=== PATIENT | female | born 1985 | race Caucasian/White ===

== ENCOUNTER 2016-08-18 19:33 | Emergency (ER) | payer OTHER, BC ==
--- NOTE | 2016-08-18 20:04 | ER Document Report ---
ED Medical Screen (RME) - General Stated Complaint: LEFT THUMB LACERATION Notes: cut her left thumb at 630pm. opening a package with a knife and sliced her thumb evidence of pulsatile bleeding, senstation intact at distal tip of her finger, capillary refill less than 2 seconds last tetanus was late 2011 I have greeted and performed a rapid initial assessment of this patient. A comprehensive ED assessment and evaluation of the patient, analysis of test results and completion of the medical decision making process will be conducted by additional ED providers. TRAVEL OUTSIDE OF THE [place] IN LAST 30 DAYS: No - Related Data Allergies/Adverse Reactions: aripiprazole [From Abilify] Allergy (Verified 06/29/16 16:43) azithromycin [From Zithromax] Allergy (Verified 03/17/15 13:15) gabapentin Allergy (Verified 06/29/16 16:43) strawberry [[place]] Allergy (Verified 03/17/15 13:15) Past Medical History Psychiatric Medical History: Reports: Hx Anxiety, Hx Bipolar Disorder, Hx Depression Past Surgical History: Reports: Hx Orthopedic Surgery - L shoulder - Immunizations Hx Diphtheria, Pertussis, Tetanus Vaccination: Yes - approx 1 year ago
[2016-08-18] MEDS ORDERED: OXYCODONE-ACETAMINOPHEN 5-325 MG TABLET PO ONE (20:05)
[2016-08-19] MEDS ORDERED: LIDOCAINE 1% INJ-PF (10 MG/ML) 30 ML SDV INJ ONE (01:11)
--- NOTE | 2016-08-19 01:21 | ER Document Report ---
ED General - General Chief Complaint: Laceration Stated Complaint: LEFT THUMB LACERATION Notes: Patient is a 31 of female presents for complaint of a laceration to the left thumb. She actually cut her thumb while using a razor blade to open a box. She denies any other injuries. She is up-to-date on her tetanus status. She denies any other complaints or injuries. TRAVEL OUTSIDE OF THE [place] IN LAST 30 DAYS: No - Related Data Allergies/Adverse Reactions: aripiprazole [From Abilify] Allergy (Verified 06/29/16 16:43) azithromycin [From Zithromax] Allergy (Verified 03/17/15 13:15) gabapentin Allergy (Verified 06/29/16 16:43) strawberry [[place]] Allergy (Verified 03/17/15 13:15) Past Medical History - Social History Smoking Status: Current Every Day Smoker Chew tobacco use (# tins/day): No Frequency of alcohol use: None Drug Abuse: None Family History: CAD, Hypertension Patient has suicidal ideation: No Patient has homicidal ideation: No Renal/ Medical History: Denies: Hx Peritoneal Dialysis Psychiatric Medical History: Reports: Hx Anxiety, Hx Bipolar Disorder, Hx Depression Past Surgical History: Reports: Hx Orthopedic Surgery - L shoulder - Immunizations Hx Diphtheria, Pertussis, Tetanus Vaccination: Yes - approx 1 year ago Review of Systems - Review of Systems Notes: My Normal Review Basic REVIEW OF SYSTEMS: CONSTITUTIONAL : Denies fever, chills, or sweats. Denies recent illness. MUSCULOSKELETAL: Pain and laceration to left thumb. SKIN: Denies rash or skin lesions. NEUROLOGICAL: Denies sensory or motor loss. ALL OTHER SYSTEMS REVIEWED AND NEGATIVE. Physical Exam - Notes Notes: General Appearance: Well nourished, alert, cooperative, no acute distress, no obvious discomfort. Vitals: reviewed, See vital signs table. Head: no swelling or tenderness to the head Eyes: PERRL, EOMI, Conjuctiva clear Extremities: strength 5/5 in all extremities, good pulses in all extremities, patient has a laceration to the pad of the left thumb. Mild gaping of the laceration. No exposed tendon.. Venous oozing from the thumb, no edema. Patient is able to flex and extend the thumb but has some pain in doing so. Skin: warm, dry, appropriate color, no rash Neuro: speech clear, oriented x 3, normal affect, responds appropriately to questions. Course - Transfer of Care Notes: 08/19/16 06:55 Laceration was thoroughly irrigated and cleaned. Laceration was sutured closed. The very proximal part of laceration was a small superficial skin flap which would be too thin for sutures and therefore this was Dermabond. A total of 4 sutures was placed through the remainder of the laceration. Patient encouraged return to ER in 7 days for suture removal. She's encouraged return to ER immediately if she has any redness swelling or signs of infection. Patient agrees with plan and will be discharged home. Dictation of this chart was performed using voice recognition software; therefore, there may be some unintended grammatical errors. Procedures - Laceration/Wound Repair left thumb Wound length (cm): 2 Wound's Depth, Shape: Irregular Laceration pre-procedure: Shur-Clens applied Anesthetic type: 1% Lidocaine Volume Anesthetic (mLs): 1 Wound explored: Clean Irrigated w/ Saline (mLs): 20 Wound Repaired With: Sutures, Dermabond Suture Size/Type: 5:0, Ethilon Number of Sutures: 4 Post-procedure NV exam normal: Yes Complications: No Discharge - Discharge Clinical Impression: Thumb laceration Qualifiers: Encounter type: initial encounter Laterality: left Qualified Code(s): S61.012A - Laceration without foreign body of left thumb without damage to nail, initial encounter Condition: Good Disposition: HOME, SELF-CARE Additional Instructions: LACERATION CARE: Your laceration has been sutured to keep the skin edges aligned during healing. The time of suture removal depends on the nature and location of your cut. Please follow the care instructions the doctor has outlined for you and return for further care, according to the schedule you've been given. Keep the wound and dressing clean. Unless you were told otherwise, you may shower daily, blotting the wound dry with a clean, unused towel. At other times, If the dressing gets wet or blood soaked, remove it and blot the wound dry, then reapply a new dressing. Unless you were instructed otherwise, dressings should be changed at least daily. If any signs of infection occur (swelling, redness, drainage, increasing tenderness, red streaks, tender lumps in the armpit or groin above the laceration, or fever), see the doctor immediately. SOAP CLEANSING: Gently wash the wound daily using a mild soap (like Ivory, Phisoderm, Neutrogena). Use warm water, rubbing gently until all debris, ooze, and crusting have been washed from the wound. Allow to dry briefly (about 10 minutes) after cleaning. Repeat this cleansing at least three times a day for the first two days and then once or twice a day. PROPHYLACTIC ANTIBIOTIC: The antibiotics which have been prescribed are designed to decrease the risk of infection. Only certain types of wounds benefit from this -- the typical cut, scrape, or burn DOES NOT require antibiotics. Of course, infection can still occur despite the use of prophylactic antibiotics. Your wound will heal with less chance of an infectious complication if you take the medication as directed. The most important dose is the FIRST dose, so don't delay filling the prescription! FOLLOW-UP CARE: Your sutures should be removed in __7___ days. To facilitate a timely removal of your sutures, you may return to the Emergency Department at [facility]. You do not need to call for an appointment, but the best time to come in for suture removal is early in the morning. If you have been referred to another physician for follow-up care, call that physicians office for an appointment as you were instructed. If you experience a significant change in your laceration, or if you are concerned there may be an infection (swelling, redness, drainage, increasing tenderness, red streaks, tender lumps in the armpit or groin above the laceration, or fever) , return to the Emergency Department immediately re-evaluation. Prescriptions: Cephalexin Monohydrate [Keflex 500 mg Capsule] 500 mg PO BID #14 capsule
[2016-08-19] MEDS ORDERED: CEPHALEXIN 500 MG CAPSULE PO ONE (01:54)
== END 2016-08-19 02:07 | disposition home or self-care (01) ==
LOC: ER 19:33
PROC: 0HQGXZZ Repair Left Hand Skin, External Approach (ICD-10-PCS; principal; 2016-08-18)
DX: S61.012A Laceration without foreign body of left thumb without damage to nail, initial encounter (principal); F17.210 Nicotine dependence, cigarettes, uncomplicated; W26.0XXA Contact with knife, initial encounter
CPT/HCPCS: 99282

== ENCOUNTER 2016-10-05 12:15 | Emergency (ER) | payer BC ==
[2016-10-05] MEDS ORDERED: ONDANSETRON HCL 8 MG TABLET PO ONE (12:21)
--- NOTE | 2016-10-05 12:22 | ER Document Report ---
ED Medical Screen (RME) - General Stated Complaint: VOMITING Mode of Arrival: Ambulatory Information source: Patient Notes: Patient presents complaining of nausea, vomiting, and diarrhea for the past 2 weeks. Patient complains of dizziness. No fever. Patient reports chronic generalized pain. hx: Chronic back pain, migraine, Leonard's I have greeted and performed a rapid initial assessment of this patient. A comprehensive ED assessment and evaluation of the patient, analysis of test results and completion of the medical decision making process will be conducted by additional ED providers. TRAVEL OUTSIDE OF THE [place] IN LAST 30 DAYS: No - Related Data Allergies/Adverse Reactions: aripiprazole [From Abilify] Allergy (Verified 10/05/16 12:19) azithromycin [From Zithromax] Allergy (Verified 10/05/16 12:19) gabapentin Allergy (Verified 10/05/16 12:19) strawberry [[place]] Allergy (Verified 10/05/16 12:19) Past Medical History Renal/ Medical History: Denies: Hx Peritoneal Dialysis Psychiatric Medical History: Reports: Hx Anxiety, Hx Bipolar Disorder, Hx Depression Past Surgical History: Reports: Hx Orthopedic Surgery - L shoulder - Immunizations Hx Diphtheria, Pertussis, Tetanus Vaccination: Yes - approx 1 year ago Physical Exam - General General appearance: Appears well, Alert In distress: None
[2016-10-05 12:41] LABS: ABSOLUTE BASOPHILS # (AUTO) 0.1 10^3/uL (0.0-0.2); ABSOLUTE LYMPHOCYTES (AUTO) 1.6 10^3/uL (0.5-4.7); ABSOLUTE MONOCYTES (AUTO) 0.4 10^3/uL (0.1-1.4); ABSOLUTE NEUT (AUTO) 6.5 10^3/uL (1.7-8.2); BASOPHILS % (AUTO) 0.7 % (0-2); EOSINOPHILS % (AUTO) 0.5 % (0-6); HEMATOCRIT 40.9 % (36.0-47.0); HEMOGLOBIN 13.4 g/dL (12.0-15.5); HGB HCT DIFFERENCE -0.7; LYMPHOCYTES % (AUTO) 18.6 % (13-45); MEAN CORPUSCULAR HGB CONC 32.8 g/dL (32.0-36.0); MEAN CORPUSCULAR VOLUME 82 fl (80-97); MONOCYTES % (AUTO) 5.1 % (3-13); RED BLOOD COUNT 4.96 10^6/uL (3.72-5.28); RED CELL DISTRIBUTION WIDTH 13.9 % (11.5-14.0); SEGMENTED NEUTROPHILS % (AUTO) 75.1 % (42-78); WHITE BLOOD COUNT 8.6 10^3/uL (4.0-10.5)
[2016-10-05 12:59] LABS: ALANINE AMINOTRANSFERASE 17 U/L (9-52); ALKALINE PHOSPHATASE 74 U/L (38-126); ANION GAP 17 (5-19); ASPARTATE AMINO TRANSFERASE 18 U/L (14-36); BILIRUBIN,DIRECT 0.2 mg/dL (0.0-0.4); BILIRUBIN,TOTAL 1.4 mg/dL (0.2-1.3); BLOOD UREA NITROGEN 5 mg/dL (7-20); CALCIUM 10.3 mg/dL (8.4-10.2); CARBON DIOXIDE 24 mmol/L (22-30); CHLORIDE 103 mmol/L (98-107); CREATININE RESULT 0.71 mg/dL (0.52-1.25); GLUCOSE 95 mg/dL (75-110); LIPASE 66.7 U/L (23-300); POTASSIUM 3.6 mmol/L (3.6-5.0); TOTAL PROTEIN 7.6 g/dL (6.3-8.2)
[2016-10-05] MEDS ORDERED: PROCHLORPERAZINE EDISYLATE INJ 10 MG/2 ML VIAL IV ONE (15:34)
[2016-10-05] MEDS ORDERED: KETOROLAC TROMETHAMINE INJ/PF 30 MG/1 ML SDV IV ONE (15:34)
[2016-10-05] MEDS ORDERED: DIPHENHYDRAMINE HCL 50 MG/ML VIAL IV ONE (15:34)
[2016-10-05] MEDS ORDERED: NORMAL SALINE 1000 ML 1,000 ML IV ONE (15:35)
--- NOTE | 2016-10-05 15:36 | ER Document Report ---
ED GI/ - General Chief Complaint: Abdominal Pain Stated Complaint: VOMITING Time seen by provider: 15:25 Mode of Arrival: Ambulatory Notes: 31-year-old female presents to ED for complaints of nausea vomiting diarrhea for 2 weeks along with dizziness and migraine headaches. She states she has a history of chronic back pain as well as migraines and Leonard's. She states [facility] been able [facility]. She went to an urgent care about a week ago and they told her that she had a viral infection. She states she has a migraine at this time. TRAVEL OUTSIDE OF THE [place] IN LAST 30 DAYS: No - HPI Patient complains to provider of: Diarrhea, Vomiting, Other - Headache Onset: Other - 2 weeks Timing/Duration: Intermittent Quality of pain: Achy, Cramping Severity at maximum: Moderate Severity in ED: Moderate Pain Level: 3 Vaginal bleeding (Compared to normal period): None Associated symptoms: Diarrhea, Dizzy, Nausea, Vomiting, Other - Chronic generalized pain Exacerbated by: Movement, Walking, Food, Other Relieved by: Denies Similar symptoms previously: Yes Recently seen / treated by doctor: Yes - Related Data Allergies/Adverse Reactions: aripiprazole [From Abilify] Allergy (Verified 10/05/16 12:19) azithromycin [From Zithromax] Allergy (Verified 10/05/16 12:19) gabapentin Allergy (Verified 10/05/16 12:19) strawberry [Lane] Allergy (Verified 10/05/16 12:19) Past Medical History - General Information source: Patient - Social History Smoking Status: Never Smoker Cigarette use (# per day): No Chew tobacco use (# tins/day): No Smoking Education Provided: No Frequency of alcohol use: Occasional Drug Abuse: None Lives with: Family Family History: CAD, Hypertension Patient has suicidal ideation: No Patient has homicidal ideation: No - Past Medical History Cardiac Medical History: Reports: None Pulmonary Medical History: Reports: None EENT Medical History: Reports: None Neurological Medical History: Reports: Hx Migraine Endocrine Medical History: 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/ Medical History: Reports: None Malignancy Medical History: Reports: None GI Medical History: Reports: None Musculoskeltal Medical History: Reports Other - Chronic back pain, chronic pain to legs arms elbow shoulder Skin Medical History: Reports None Psychiatric Medical History: Reports: Hx Anxiety, Hx Bipolar Disorder, Hx Depression Traumatic Medical History: Reports: None Past Surgical History: Reports: Hx Orthopedic Surgery - L shoulder - Immunizations Hx Diphtheria, Pertussis, Tetanus Vaccination: Yes - approx 1 year ago Review of Systems - Review of Systems Constitutional: Recent illness EENT: No symptoms reported Cardiovascular: No symptoms reported Respiratory: No symptoms reported Gastrointestinal: Diarrhea, Nausea, Vomiting Genitourinary: No symptoms reported Female Genitourinary: No symptoms reported Musculoskeletal: Other - Generalized body aches Skin: No symptoms reported Hematologic/Lymphatic: No symptoms reported Neurological/Psychological: Headaches -: Yes All other systems reviewed and negative Physical Exam - Vital signs Vitals: Temp Pulse Resp BP Pulse Ox 98.4 F 85 14 118/82 99 10/05/16 12:18 10/05/16 12:18 10/05/16 12:18 10/05/16 12:18 10/05/16 12:18 Interpretation: Normal - General General appearance: Appears well, Alert - HEENT Head: Normocephalic, Atraumatic Eyes: Normal Pupils: PERRL - Respiratory Respiratory status: No respiratory distress Chest status: Nontender Breath sounds: Normal Chest palpation: Normal - Cardiovascular Rhythm: Regular Heart sounds: Normal auscultation Murmur: No - Abdominal Inspection: Normal Distension: No distension Bowel sounds: Normal Tenderness: Nontender Organomegaly: No organomegaly - Back Back: Normal, Nontender - Extremities General upper extremity: Normal inspection, Nontender, Normal color, Normal ROM , Normal temperature General lower extremity: Normal inspection, Nontender, Normal color, Normal ROM , Normal temperature, Normal weight bearing. No: Teresa's sign - Neurological Neuro grossly intact: Yes Cognition: Normal Orientation: AAOx4 Amanda Coma Scale Eye Opening: Spontaneous Amanda Coma Scale Verbal: Oriented Wilburn Coma Scale Motor: Obeys Commands Amanda Coma Scale Total: 15 Speech: Normal Motor strength normal: LUE, RUE, LLE, RLE Sensory: Normal - Psychological Associated symptoms: Normal affect, Normal mood - Skin Skin Temperature: Warm Skin Moisture: Dry Skin Color: Normal Course - Vital Signs Vital signs: Temp Pulse Resp BP Pulse Ox 97.3 F 63 16 110/80 100 10/05/16 18:30 10/05/16 18:30 10/05/16 18:30 10/05/16 18:30 10/05/16 18:30 - Laboratory Result Diagrams: 10/05/16 12:25 10/05/16 12:25 Laboratory results interpreted by me: 10/05/16 10/05/16 12:25 17:58 BUN 5 L Calcium 10.3 H Total Bilirubin 1.4 H Urine Protein 30 H Urine Ketones TRACE H Urine Blood LARGE H Ur Leukocyte Esterase LARGE H Discharge - Discharge Clinical Impression: Nausea and vomiting in adult, Pelvic pain Abdominal pain Qualifiers: Abdominal location: unspecified location Qualified Code(s): R10.9 - Unspecified abdominal pain Diarrhea Qualifiers: Diarrhea type: unspecified type Qualified Code(s): R19.7 - Diarrhea, unspecified Condition: Stable Disposition: HOME, SELF-CARE Instructions: Family Physicians / Practices Additional Instructions: ABDOMINAL PAIN: There are many causes of abdominal pain. Pain can mean a serious problem requiring surgery (such as appendicitis). It can also be an innocent problem that goes away on its own (such as a viral infection). Often, time must pass to determine the cause of pain. The physician does not feel that hospitalization is necessary, at present. Things may change within the next 24 hours. Call the doctor or come back for re- examination if any problems occur, such as: (1) Pain that becomes more severe, steady, or becomes concentrated in one specific area. Also, pain that is more severe with movement or coughing. (2) Vomiting that persists or becomes more frequent. (3) Blood in the vomitus, urine, or bowel movements. Blood in the stool may have a tarry or black appearance. (4) Shaking chills or fever greater than 100 degrees F. (5) The abdomen becomes more distended or swollen. (6) Bowel movements cease. (7) Failure to improve as expected. VOMITING: Vomiting (or nausea without vomiting) can be caused by many other different problems. It can mean that something's wrong with the stomach, such as ulcers or inflammation or the intestinal tract, such as appendicitis. But it can also be a symptom of a problem that has nothing to do with the stomach or intestines. Vomiting is common with severe headaches, earaches, tonsillitis, and kidney infections, etc. We see it with pneumonia or heart attacks. Drugs can cause nausea and vomiting. Many abdominal problems cause vomiting; for example, gallstones, kidney stones, pancreatitis, and intestinal obstruction ( blocked bowels). In most cases, curing the vomiting depends on fixing the problem that caused it. For temporary relief, we may use an anti-nausea medicine. For home use, we can prescribe suppositories, chewable pills, pills that dissolve in the mouth, or liquid anti-nausea drugs. If the vomiting seems to be caused by a problem in the stomach, acid-suppressing drugs may be prescribed as well. It's important to avoid dehydration. Sip small amounts of clear liquids ( soft drinks, tea, broth, etc) . Try to take fluids frequently even if you are vomiting to prevent dehydration. Take increasing amounts of fluid and when liquids are being consumed successfully, advance to small amounts of bland food (toast, soups, mashed potatoes, etc.) until you are able to resume a regular diet. Avoid aspirin, tobacco, and alcohol. If the vomiting worsens, if the problem that's making you vomit worsens, or if there's evidence of bleeding in the stomach (such as black, tarry stool, or bloody or black vomit), you should return immediately. Also, return if abdominal pain worsens or becomes localized to one area or you develop high fever. Call your doctor if you aren't improved in 24 hours. DIARRHEA, NON-SPECIFIC: Diarrhea means frequent, watery stools. There are many causes. Any problem that keeps the intestinal tract from absorbing water from the stool can lead to diarrhea. A sudden new diarrhea problem is usually caused by a virus, food sensitivity, toxic bacteria, or drugs. In this case, we expect the problem to go away soon. Testing is done only if you seem seriously ill from the diarrhea. If you have chronic diarrhea, or diarrhea that keeps coming back, we need to find out why. Chronic diarrhea can be due to inflammation of the bowels such as Crohn's disease or ulcerative colitis, food sensitivity such as intolerance to lactose or wheat protein, irritable bowel syndrome, and other problems. If your diarrhea is a significant problem but it's not clear why you have it, we' ll refer you to a specialist for further testing. During an episode of diarrhea, drink small amounts (two to six ounces) of clear liquids (soft drinks, sport drinks, herb teas, broth, etc). Take fluids frequently to prevent dehydration. It's usually not a problem to take mild anti- diarrhea medication such as Kaopectate or Pepto-Bismol. As the diarrhea eases, advance to small amounts of bland food (mashed potato, toast) for 24 hours. Call the physician if blood appears in your vomit or stool, if vomiting lasts longer than 24 hours, if the abdominal pain worsens or becomes localized to one area, if you develop high fever, or if you become lightheaded and weak. VIRAL SYNDROME: The physician has diagnosed a viral infection. Viruses not only cause "colds," but can cause many different symptoms including generalized aching, fever, headache, cough, diarrhea, nausea, vomiting, and fatigue. The treatment, for the most part, is simply relief of symptoms. This means that antibiotics are usually not given. Rest, fluids, pain medications and, occasionally, medication for the specific symptoms that are most bothersome will be prescribed. Use good handwashing to avoid passing the virus to others. Shared toys should be cleaned with disinfectant. Clean the toilets, sinks, and counter surfaces in bathrooms. Launder clothing in hot water. Contact the physician if you develop any new or unusual symptoms such as severe headache, stiff neck, high fever, chest pain, productive cough, or shortness of breath. You should be rechecked if you don't see marked improvement within seven to 10 days. HEADACHE: The physician does not feel that the headache you are experiencing has a serious underlying cause. Most headaches are due to emotional stress, with resultant muscle tension (tension headache). Occasionally, headaches are secondary to changes in the blood vessels of the scalp (vascular headache and migraine headache). Sometimes, a headache is the first symptom of another developing illness, such as a viral infection. You have no evidence of stroke, bleeding, meningitis, or other serious cause of your headache. The treatment of headaches varies with the severity and cause of the pain. Not all headaches need pain shots. In fact, there is evidence that using narcotics for headaches may make them worse in the long run. The physician will determine the therapy that's in your best interest. If you develop a fever, if the headache is different from any you've previously experienced, or if the headache progressively worsens, then call your physician at once or go to the emergency room. PELVIC PAIN: There are many causes of pain in the pelvic area. The cause could be the tubes, ovaries, uterus, intestines, appendix, pelvic muscles and connective tissue, or the urinary tract. The cause of your pelvic pain is not clear. However, it seems safe to treat you outside the hospital. If the pain sounds like a temporary problem, we sometimes wait to see if it goes away. Other patients may need additional tests, such as pelvic ultrasound or cultures. Conditions may change. Call us or come back for reexamination if any problems occur, such as: (1) Pain that becomes more severe, steady, or becomes concentrated in one specific area. Also, pain that is more severe with movement or coughing. (2) Vomiting that persists or becomes more frequent. (3) Blood in the vomitus, urine, or bowel movements. Blood in the stool may have a tarry or black appearance. (4) Shaking chills or fever greater than 100 degrees. (5) The abdomen becomes more distended or swollen. (6) Bowel movements cease. (7) Heavy vaginal bleeding. \\ CEPHALOSPORINS: An antibiotic of the cephalosporin class has been prescribed. This type of antibiotic covers a wide variety of infections, including those of the skin, lungs, middle ear, and urinary tract. This antibiotic is somewhat similar to the penicillin family. In rare cases , a person who is allergic to penicillin will also be allergic to this medication. If you have had a severe allergic reaction to penicillin, and have not taken this antibiotic since that time, notify your doctor. Antibiotics which cover many germs ("broad spectrum" antibiotics) are more likely to cause diarrhea or "yeast" infections. Women prone to vaginal yeast problems may suffer an attack after taking this antibiotic. In infants, oral thrush (white spots "stuck" on the cheek) or yeast diaper rash may result. See your doctor if these problems occur. Call the doctor at once if you develop hives, itching, shortness of breath , or lightheadedness. DOXYCYCLINE: Doxycycline (Vibramycin, Doryx) is an antibiotic of the tetracycline family. This type of drug is useful for infections of the respiratory tract and genital tract, and is sometimes used for intestinal infections. Unlike most tetracyclines, doxycycline can be taken with food. It is longer acting, and (usually) less prone to side effects than regular tetracycline. Tetracycline antibiotics can stain immature teeth and SHOULD NOT BE TAKEN BY CHILDREN, NURSING MOTHERS, OR WOMEN. Tetracyclines can make you more prone to sunburn. Abdominal cramping, nausea, and diarrhea are occasional side effects. Women may experience vaginal yeast infections. Call the doctor at once if you develop hives, itching, shortness of breath , or lightheadedness. USE OF DIPHENHYDRAMINE: Diphenhydramine (Benadryl) is an antihistamine and has been recommended to help treat your headache and to prevent side effects of other medications used to treat headaches. The medication can be repeated four times daily. Age Elixir (12.5 mg/tsp) 25 mg pill adult 1-2 tabs Antihistamines may cause drowsiness, especially with the first dose. Do not operate machinery or drive while under the effects of the medication. Do not combine the medication with alcohol, or with any other medication without talking to your doctor. ANTINAUSEA MEDICATION: You have been given a medication to suppress nausea and vomiting. This type of medication can be given as a shot, pill, or suppository. It will usually last for many hours. Pills and shots usually last six to eight hours, suppositories last about 12 hours. For the typical illness, only one or two doses of the medication may be necessary. Mild lightheadedness may occur. This type of medicine can cause drowsiness. Do not drive or operate dangerous machinery while under its influence. Do not mix with alcohol. See your doctor at once if you have muscle spasms or tightness, or uncontrollable motions (particularly of the neck, mouth, or jaw). Persistent vomiting or severe lightheadedness should also be evaluated by the physician. INTRAVENOUS COMPAZINE FOR HEADACHE: You have received therapy for headaches, using intravenous Compazine. This treatment is dramatically successful in relieving the headache in about 50 percent of cases. When it works, it provides a rapid method of eliminating the headache without resorting to narcotics (and the problems associated with them). Most patients still feel fully alert after the Compazine, but others may be slightly drowsy. It's best not to drive or work with machinery for six to eight hours. Do not take alcohol or other medication unless you discuss it with the doctor. If you develop tightness and spasms in your muscles, especially the neck and tongue, you should return. This is a side effect which can be treated. TORADOL INJECTION: You have been given an injection of ketorolac tromethamine (Toradol). This is an excellent, safe drug for pain control. It also has potent antiinflammatory action. You should have significant pain relief within about one hour. Toradol is not addicting and is non-sedating. It does not interfere with driving or work. Call or return if you develop itching, hives, shortness of breath, or rash. INTRAVENOUS (I V) FLUIDS: As part of your care today, you received intravenous (IV) fluids. IV fluids are administered to patients who are dehydrated or to those who have certain chemical (electrolyte) abnormalities that need correcting. ANTINAUSEA MEDICATION: You have been given a medication to suppress nausea and vomiting. This type of medication can be given as a shot, pill, or suppository. It will usually last for many hours. Pills and shots usually last six to eight hours. For the typical illness, only one or two doses of the medication may be necessary. Mild lightheadedness may occur. This type of medicine can cause drowsiness. Do not drive or operate dangerous machinery while under its influence. Do not mix with alcohol. See your doctor at once if you have muscle spasms or tightness, or uncontrollable motions (particularly of the neck, mouth, or jaw). Persistent vomiting or severe lightheadedness should also be evaluated by the physician. FOLLOW-UP CARE: If you have been referred to a physician for follow-up care, call the physician s office for an appointment as you were instructed or within the next two days. If you experience worsening or a significant change in your symptoms, notify the physician immediately or return to the Emergency Department at any time for re-evaluation. Prescriptions: Doxycycline Hyclate 100 mg PO BID #20 tablet Promethazine HCl [Phenergan 25 mg Tablet] 25 mg PO Q6H PRN #15 tablet PRN Reason: Forms: Return to Work
[2016-10-05] MEDS ORDERED: LIDOCAINE 1% INJ-PF (10 MG/ML) 30 ML SDV INJ ONE (18:03)
[2016-10-05] MEDS ORDERED: CEFTRIAXONE INJ 250 MG VIAL IM ONE (18:03)
[2016-10-05] MEDS ORDERED: DOXYCYCLINE HYCLATE 100 MG TABLET PO ONE (18:05)
[2016-10-05 18:26] LABS: APPEARANCE,URINE CLOUDY; BILIRUBIN,URINE NEGATIVE (NEGATIVE); GLUCOSE, URINE NEGATIVE (NEGATIVE); KETONES,URINE TRACE mg/dL (NEGATIVE); LEUKOCYTE ESTERASE,URINE LARGE (NEGATIVE); NITRITE,URINE NEGATIVE (NEGATIVE); PROTEIN,URINE 30 mg/dL (NEGATIVE); URINE SPECIFIC GRAVITY 1.008; UROBILINOGEN,URINE NEGATIVE mg/dL (<2.0)
[2016-10-05 18:40] VITALS: BP 110/80
[2016-10-05 20:08] LABS: CHLAM PCR NOT DETECTED (NOT DETECT)
== END 2016-10-05 18:37 | disposition home or self-care (01) ==
LOC: ER 12:15
DX: R11.2 Nausea with vomiting, unspecified (principal); R10.2 Pelvic and perineal pain; R19.7 Diarrhea, unspecified; R42 Dizziness and giddiness; G43.909 Migraine, unspecified, not intractable, without status migrainosus; G89.29 Other chronic pain; Z88.8 Allergy status to other drugs, medicaments and biological substances; Z88.1 Allergy status to other antibiotic agents; Z91.018 Allergy to other foods; Z88.6 Allergy status to analgesic agent
CPT/HCPCS: 99284; 96372; 96361; 96374; 96375; 36415; 83690; 84703; 85025; 80053; 81001; 87491; 87591; J1200; J3490; J1885; S0119; J0780; J7030; J0696

== ENCOUNTER 2016-10-28 16:52 | Emergency (ER) | payer BC ==
--- NOTE | 2016-10-28 17:08 | ER Document Report ---
HPI - REPRODUCTIVE Reproductive: DENIES: : Past Medical History - Social History Family History: CAD, Hypertension Neurological Medical History: Reports: Hx Migraine Endocrine Medical History: 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/ Medical History: Denies: Hx Peritoneal Dialysis Psychiatric Medical History: Reports: Hx Anxiety, Hx Bipolar Disorder, Hx Depression Past Surgical History: Reports: Hx Orthopedic Surgery - L shoulder - Immunizations Hx Diphtheria, Pertussis, Tetanus Vaccination: Yes - approx 1 year ago Vertical Provider Document - INFECTION CONTROL TRAVEL OUTSIDE OF THE [place] IN LAST 30 DAYS: No
[2016-10-28] MEDS ORDERED: MORPHINE SULFATE 10 MG/ML INJ IV ONE ×2 (17:19→18:40)
[2016-10-28] MEDS ORDERED: ONDANSETRON 4 MG TAB.RAPDIS PO ONE ×2 (17:20→19:41)
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
[2016-10-28 19:38] VITALS: BP 117/82
== END 2016-10-28 19:57 | disposition home or self-care (01) ==
LOC: ER 16:52
DX: S09.90XA Unspecified injury of head, initial encounter (principal); S93.402A Sprain of unspecified ligament of left ankle, initial encounter; S50.312A Abrasion of left elbow, initial encounter; S50.02XA Contusion of left elbow, initial encounter; G44.319 Acute post-traumatic headache, not intractable; M54.5 Low back pain; M54.6 Pain in thoracic spine; G89.29 Other chronic pain; M54.9 Dorsalgia, unspecified; F41.9 Anxiety disorder, unspecified; W18.39XA Other fall on same level, initial encounter; Y93.51 Activity, roller skating (inline) and skateboarding
CPT/HCPCS: 96376; 99284; 96374; 73610; 72110; 73030; 70450; 71250; 72125; L1902; S0119; J2270

== ENCOUNTER 2017-06-27 12:20 | Emergency (ER) | payer OTHER ==
[2017-06-27] MEDS ORDERED: NORMAL SALINE 1000 ML 1,000 ML IV ONE (13:03)
--- NOTE | 2017-06-27 13:04 | ER Document Report ---
ED Medical Screen (RME) - General Chief Complaint: Vaginal Bleeding Stated Complaint: VAGINAL BLEEDING 15 WKS PREG Time Seen by Provider: 06/27/17 13:03 Notes: Patient states that she is having vaginal bleeding and cramping. She states she is approximately 15 weeks . She states she has had 3 ultrasounds up to this point. They have showed subchorionic hemorrhage. She states her last ultrasound was approximately 3 weeks ago. TRAVEL OUTSIDE OF THE [place] 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/ Medical History: Denies: Hx Peritoneal Dialysis Psychiatric Medical History: Reports: Hx Anxiety, Hx Bipolar Disorder, Hx Depression Past Surgical History: Reports: Hx Orthopedic Surgery - L shoulder - Immunizations Hx Diphtheria, Pertussis, Tetanus Vaccination: Yes - approx 1 year ago Physical Exam - Vital signs Vitals: Temp Pulse Resp BP Pulse Ox 98.7 F 95 16 130/73 H 100 06/27/17 12:25 06/27/17 12:25 06/27/17 12:25 06/27/17 12:25 06/27/17 12:25 Course - Vital Signs Vital signs: Temp Pulse Resp BP Pulse Ox 98.7 F 95 16 130/73 H 100 06/27/17 12:25 06/27/17 12:25 06/27/17 12:25 06/27/17 12:25 06/27/17 12:25
[2017-06-27 13:28] LABS: APPEARANCE,URINE CLEAR; BILIRUBIN,URINE NEGATIVE (NEGATIVE); GLUCOSE, URINE NEGATIVE (NEGATIVE); KETONES,URINE NEGATIVE (NEGATIVE); LEUKOCYTE ESTERASE,URINE MODERATE (NEGATIVE); NITRITE,URINE NEGATIVE (NEGATIVE); PROTEIN,URINE NEGATIVE (NEGATIVE); URINE SPECIFIC GRAVITY 1.006; UROBILINOGEN,URINE NEGATIVE mg/dL (<2.0)
[2017-06-27 13:46] LABS: ABSOLUTE EOSINOPHILS # (AUTO) 0.1 10^3/uL (0.0-0.6); ABSOLUTE LYMPHOCYTES (AUTO) 1.9 10^3/uL (0.5-4.7); ABSOLUTE MONOCYTES (AUTO) 0.4 10^3/uL (0.1-1.4); ABSOLUTE NEUT (AUTO) 9.4 10^3/uL (1.7-8.2); BASOPHILS % (AUTO) 0.4 % (0-2); EOSINOPHILS % (AUTO) 0.5 % (0-6); HEMATOCRIT 35.7 % (36.0-47.0); HEMOGLOBIN 12.4 g/dL (12.0-15.5); HGB HCT DIFFERENCE 1.5; LYMPHOCYTES % (AUTO) 15.9 % (13-45); MEAN CORPUSCULAR HEMOGLOBIN 29.2 pg (27.0-33.4); MEAN CORPUSCULAR HGB CONC 34.8 g/dL (32.0-36.0); MEAN CORPUSCULAR VOLUME 84 fl (80-97); MONOCYTES % (AUTO) 3.6 % (3-13); RED BLOOD COUNT 4.26 10^6/uL (3.72-5.28); RED CELL DISTRIBUTION WIDTH 13.9 % (11.5-14.0); SEGMENTED NEUTROPHILS % (AUTO) 79.6 % (42-78); WHITE BLOOD COUNT 11.8 10^3/uL (4.0-10.5)
[2017-06-27 13:59] LABS: ALANINE AMINOTRANSFERASE 24 U/L (9-52); ALBUMIN 3.9 g/dL (3.5-5.0); ALKALINE PHOSPHATASE 76 U/L (38-126); ANION GAP 10 (5-19); ASPARTATE AMINO TRANSFERASE 14 U/L (14-36); BILIRUBIN,DIRECT 0.4 mg/dL (0.0-0.4); BILIRUBIN,TOTAL 0.8 mg/dL (0.2-1.3); BLOOD UREA NITROGEN 5 mg/dL (7-20); CALCIUM 9.3 mg/dL (8.4-10.2); CARBON DIOXIDE 24 mmol/L (22-30); CHLORIDE 102 mmol/L (98-107); CREATININE RESULT 0.62 mg/dL (0.52-1.25); GLUCOSE 87 mg/dL (75-110); POTASSIUM 3.8 mmol/L (3.6-5.0); SODIUM 136.3 mmol/L (137-145); TOTAL PROTEIN 6.6 g/dL (6.3-8.2)
--- NOTE | 2017-06-27 14:23 | ER Document Report ---
ED GI/ - General Chief Complaint: Vaginal Bleeding Stated Complaint: VAGINAL BLEEDING 15 WKS PREG Time Seen by Provider: 06/27/17 13:03 TRAVEL OUTSIDE OF THE [place] IN LAST 30 DAYS: No - HPI Notes: 06/27/17 14:20 patient approximately 15 weeks with complications of subchorionic hemorrhage on prior ultrasound and repetitive vaginal bleeding began bleeding yesterday with some mild cramping radiating around to the back. It is less than a menses. No tissue or significant clots. No trauma or intercourse relation. No fever. Pain is mild. Recommended to come to the emergency department by her tone artist apprentice's office. - Related Data Allergies/Adverse Reactions: aripiprazole [From Abilify] Allergy (Verified 06/27/17 12:59) azithromycin [From Zithromax] Allergy (Verified 06/27/17 12:59) gabapentin Allergy (Verified 06/27/17 12:59) strawberry [[place]] Allergy (Verified 06/27/17 12:59) Past Medical History - Social History Smoking Status: Never Smoker Chew tobacco use (# tins/day): No Frequency of alcohol use: None Drug Abuse: None Family History: Reviewed & Not Pertinent, CAD, Hypertension Patient has suicidal ideation: No Patient has homicidal ideation: No Neurological Medical History: Reports: Hx Migraine Endocrine Medical History: 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/ Medical History: Denies: Hx Peritoneal Dialysis Psychiatric Medical History: Reports: Hx Anxiety, Hx Bipolar Disorder, Hx Depression Past Surgical History: Reports: Hx Orthopedic Surgery - L shoulder - Immunizations Hx Diphtheria, Pertussis, Tetanus Vaccination: Yes - approx 1 year ago Review of Systems - Review of Systems -: Yes All other systems reviewed and negative Physical Exam - Vital signs Vitals: Temp Pulse Resp BP Pulse Ox 98.7 F 95 16 130/73 H 100 06/27/17 12:25 06/27/17 12:25 06/27/17 12:25 06/27/17 12:25 06/27/17 12:25 Interpretation: Hypertensive - Notes Notes: PHYSICAL EXAMINATION: GENERAL: VS as per nursing doc. Well-appearing, well-nourished no acute distress. HEAD: Atraumatic, normocephalic. EYES: Anicteric without conjunctival injection. ENT: Normal to inspection, moist mucous membranes. NECK: Supple with grossly normal range of motion. LUNGS: Normal respiratory excursion without distress. Clear to auscultation. HEART: Regular rate and rhythm cap refill < 3 seconds. ABDOMEN: Normal to inspection. EXTREMITIES: No edema. NEUROLOGICAL: Grossly normal with symmetrical movements. PSYCH: Normal mood, normal affect. SKIN: Warm, dry. : Pending - Genitourinary External exam: Normal Notes: There is no vaginal bleeding noted. Minimal amount of yellowish discharge. Cervical loss is closed. Course - Re-evaluation Re-evalutation: 06/27/17 16:18 Discussed findings with the patient including complete pelvic rest. She obviously having some issues with stres with working and taking care of family. I have instructed her to contact her tone artist apprentice tomorrow to arrange follow- up. She voices understanding. She understands warning signs to watch for. - Vital Signs Vital signs: Temp Pulse Resp BP Pulse Ox 98.7 F 95 16 130/73 H 100 06/27/17 12:25 06/27/17 12:25 06/27/17 12:25 06/27/17 12:25 06/27/17 12:25 - Laboratory Result Diagrams: 06/27/17 13:20 06/27/17 13:20 Laboratory results interpreted by me: 06/27/17 06/27/17 06/27/17 13:10 13:20 13:20 WBC 11.8 H Hct 35.7 L Seg Neutrophils % 79.6 H Absolute Neutrophils 9.4 H Sodium 136.3 L BUN 5 L Beta HCG, Quant 38868.00 H Urine Blood MODERATE H Ur Leukocyte Esterase MODERATE H - Diagnostic Test Radiology reviewed: Reports reviewed - No subchorionic hemorrhage identified. Marginal central previa. Discharge - Discharge Clinical Impression: Vaginal bleeding in Condition: Good Additional Instructions: Return for fever, worsening problems or other concerns such as severe bleeding. Contact your tone artist apprentice for follow-up as well as further work and exercise limitations. Light activity.
--- NOTE | 2017-06-27 16:05 | RADIOLOGY REPORT (SQ) ---
EXAM DESCRIPTION: U/S OB LIMITED COMPLETED DATE/TIME: 06/27/2017 2:48 pm REASON FOR STUDY: Vag bld, 15wk gestation/hx subchorionic hem COMPARISON: OB ultrasound 05/23/2017 TECHNIQUE: Limited transabdominal and endovaginal grayscale ultrasound for evaluation of specific re quested obstetrical parameters. LIMITATIONS: None. FINDINGS: CERVICAL LENGTH: 3.8 cm Closed. VALENTINE: Largest pocket 3.3 cm. FHR: 173 beats per minute. PRESENTATION: Cephalic. OTHER: The placenta is low lying, along the rightward lower uterine segment. There is marginal place nta previa on today's endovaginal images. No definite subchorionic hemorrhage IMPRESSION: Cervix closed, 3.8 cm in length. Adequate amniotic fluid Low-lying placenta with marginal previa. No retroplacental hemorrhage on today's images Trimester of : Second trimester - 13 weeks 1 day to 27 weeks 6 days. TECHNICAL DOCUMENTATION: JOB ID: [id number] [employer]- All Rights Reserved
[2017-06-27 16:30] VITALS: BP 106/72
== END 2017-06-27 16:52 | disposition home or self-care (01) ==
LOC: ER 12:20
DX: O46.92 Antepartum hemorrhage, unspecified, second trimester (principal); Z3A.15 15 weeks gestation of pregnancy; R10.2 Pelvic and perineal pain; M54.9 Dorsalgia, unspecified
CPT/HCPCS: 99284; 96360; 86900; 86901; 36415; 84702; 85025; 80053; 81001; 76815; J7030

== ENCOUNTER → 2017-10-22 | Outpatient (CLI) | payer OTHER ==
[2017-10-22 15:44] LABS: HEMATOCRIT 32.9 % (36.0-47.0); HEMOGLOBIN 10.7 g/dL (12.0-15.5); MEAN CORPUSCULAR HEMOGLOBIN 26.6 pg (27.0-33.4); MEAN CORPUSCULAR HGB CONC 32.6 g/dL (32.0-36.0); MEAN CORPUSCULAR VOLUME 82 fl (80-97); PLATELET COUNT 420 10^3/uL (150-450); RED BLOOD COUNT 4.03 10^6/uL (3.72-5.28); RED CELL DISTRIBUTION WIDTH 14.3 % (11.5-14.0); WHITE BLOOD COUNT 13.7 10^3/uL (4.0-10.5)
[2017-10-22 16:02] LABS: ASPARTATE AMINO TRANSFERASE 14 U/L (14-36); LDH 350 U/L (313-618); URIC ACID 4.3 mg/dL (2.5-6.2)
== END ==
LOC: OD 14:44
PROVIDERS: ATTEND Obstetrics & Gynecology
DX: O16.9 Unspecified maternal hypertension, unspecified trimester (principal)
CPT/HCPCS: 36415; 82565; 83615; 84450; 84550; 85027

== ENCOUNTER → 2017-11-05 | Outpatient (CLI) | payer OTHER ==
[2017-11-05 16:40] LABS: HEMOGLOBIN 10.3 g/dL (12.0-15.5); MEAN CORPUSCULAR HEMOGLOBIN 26.5 pg (27.0-33.4); MEAN CORPUSCULAR HGB CONC 33.3 g/dL (32.0-36.0); MEAN CORPUSCULAR VOLUME 80 fl (80-97); PLATELET COUNT 410 10^3/uL (150-450); RED BLOOD COUNT 3.89 10^6/uL (3.72-5.28); RED CELL DISTRIBUTION WIDTH 14.6 % (11.5-14.0); WHITE BLOOD COUNT 11.8 10^3/uL (4.0-10.5)
[2017-11-05 17:03] LABS: ANION GAP 13 (5-19); ASPARTATE AMINO TRANSFERASE 15 U/L (14-36); CARBON DIOXIDE 22 mmol/L (22-30); CHLORIDE 104 mmol/L (98-107); LDH 301 U/L (313-618); POTASSIUM 4.3 mmol/L (3.6-5.0); SODIUM 138.9 mmol/L (137-145); URIC ACID 4.4 mg/dL (2.5-6.2)
[2017-11-05 17:07] LABS: UR PRO/CREAT RATIO RESULT 0.6 mg/mg (0.0-0.2); URINE PROTEIN 16.2 mg/dL (<12)
[2017-11-05 17:20] LABS: FREE T3 2.79 pg/mL (2.77-5.27); FREE T4 (FREE THYROXINE) 0.94 ng/dL (0.78-2.19)
[2017-11-05 17:34] LABS: THYROID STIMULATING HORMONE 2.85 uIU/mL (0.47-4.68)
== END ==
LOC: OD 14:55
PROVIDERS: ATTEND Registered Nurse Women's Health Care, Ambulatory
DX: O99.280 Endocrine, nutritional and metabolic diseases complicating pregnancy, unspecified trimester (principal); E03.9 Hypothyroidism, unspecified; O26.899 Other specified pregnancy related conditions, unspecified trimester; R51 Headache; H53.9 Unspecified visual disturbance
CPT/HCPCS: 36415; 80051; 82565; 82570; 83615; 84156; 84439; 84443; 84450; 84481; 84550; 85027

== ENCOUNTER 2017-11-06 10:55 | Outpatient (CLI) | payer OTHER, BC ==
[2017-11-06 11:44] LABS: ABSOLUTE BASOPHILS # (AUTO) 0.1 10^3/uL (0.0-0.2); ABSOLUTE EOSINOPHILS # (AUTO) 0.1 10^3/uL (0.0-0.6); ABSOLUTE LYMPHOCYTES (AUTO) 1.6 10^3/uL (0.5-4.7); ABSOLUTE MONOCYTES (AUTO) 0.6 10^3/uL (0.1-1.4); ABSOLUTE NEUT (AUTO) 8.9 10^3/uL (1.7-8.2); BASOPHILS % (AUTO) 0.5 % (0-2); EOSINOPHILS % (AUTO) 0.6 % (0-6); HEMATOCRIT 29.9 % (36.0-47.0); HEMOGLOBIN 9.8 g/dL (12.0-15.5); LYMPHOCYTES % (AUTO) 14.4 % (13-45); MEAN CORPUSCULAR HEMOGLOBIN 26.2 pg (27.0-33.4); MEAN CORPUSCULAR HGB CONC 32.9 g/dL (32.0-36.0); MEAN CORPUSCULAR VOLUME 80 fl (80-97); MONOCYTES % (AUTO) 5.7 % (3-13); PLATELET COUNT 415 10^3/uL (150-450); RED BLOOD COUNT 3.75 10^6/uL (3.72-5.28); RED CELL DISTRIBUTION WIDTH 14.8 % (11.5-14.0); SEGMENTED NEUTROPHILS % (AUTO) 78.8 % (42-78); TOTAL CELLS COUNTED % (AUTO) 100 %; WHITE BLOOD COUNT 11.3 10^3/uL (4.0-10.5)
[2017-11-06 11:54] LABS: APPEARANCE,URINE CLOUDY; BILIRUBIN,URINE NEGATIVE (NEGATIVE); COLOR,URINE YELLOW; GLUCOSE, URINE NEGATIVE (NEGATIVE); KETONES,URINE NEGATIVE (NEGATIVE); LEUKOCYTE ESTERASE,URINE LARGE (NEGATIVE); NITRITE,URINE NEGATIVE (NEGATIVE); PROTEIN,URINE NEGATIVE (NEGATIVE); URINE SPECIFIC GRAVITY 1.006; UROBILINOGEN,URINE NEGATIVE mg/dL (<2.0)
[2017-11-06 12:06] LABS: URINE AMPHETAMINES SCREEN NEGATIVE; URINE BARBITURATES SCREEN NEGATIVE; URINE BENZODIAZEPINES SCREEN NEGATIVE; URINE COCAINE SCREEN NEGATIVE; URINE MARIJUANA (THC) SCREEN NEGATIVE; URINE METHADONE SCREEN NEGATIVE; URINE PHENCYCLIDINE SCREEN NEGATIVE
[2017-11-06 12:10] LABS: ALANINE AMINOTRANSFERASE 20 U/L (9-52); ALBUMIN 3.3 g/dL (3.5-5.0); ALKALINE PHOSPHATASE 122 U/L (38-126); ANION GAP 11 (5-19); ASPARTATE AMINO TRANSFERASE 15 U/L (14-36); BILIRUBIN,DIRECT 0.3 mg/dL (0.0-0.4); BILIRUBIN,TOTAL 0.4 mg/dL (0.2-1.3); BLOOD UREA NITROGEN 9 mg/dL (7-20); CARBON DIOXIDE 24 mmol/L (22-30); CHLORIDE 103 mmol/L (98-107); GLUCOSE 83 mg/dL (75-110); LDH 285 U/L (313-618); POTASSIUM 4.2 mmol/L (3.6-5.0); SODIUM 138.3 mmol/L (137-145); URIC ACID 5.1 mg/dL (2.5-6.2)
[2017-11-06 12:11] LABS: UR PRO/CREAT RATIO RESULT 0.4 mg/mg (0.0-0.2); URINE CREATININE 43.1 mg/dL (16-327)
--- NOTE | 2017-11-06 13:09 | Non Stress Test Report ---
Non Stress Test Datetime Report Generated by CPN: 11/06/2017 13:09 DEMOGRAPHIC EGA NST: 34.0 INDICATION Indication for Study: Ordered by Provider URINE RESULTS Urine Protein, NST: Positive Urine Ketones - NST: Negative Urine Glucose - NST: Negative Urine Blood - NST: Positive MONITORING Monitor Explained: Monitor Explained; Test Explained; Patient Verbalized Understanding Time on Monitor: 11/06/2017 11:11 Time off Monitor: 11/06/2017 11:52 NST Duration: 41 NST INTERVENTIONS NST Interventions: PO Hydration Physician Notified NST: Dr. Adria BABY A: [id number] BABY A Movement : Present Contraction Frequency : x0 FHR Baseline : 145 Accelerations : 15X15 Decelerations : None Variability : Moderate 6-25bpm NST Review: Meets Criteria for Reactive NST NST Review and Verified By : Eliseo Allen RN NST Results: Reactive NST REPORT Report Trigger: Send Report
== END 2017-11-06 13:00 | disposition home or self-care (01) ==
LOC: LC 10:55
PROVIDERS: ATTEND Obstetrics & Gynecology
PROC: 4A1HXCZ Monitoring of Products of Conception, Cardiac Rate, External Approach (ICD-10-PCS; principal; 2017-11-06)
DX: O14.93 Unspecified pre-eclampsia, third trimester (principal); Z3A.34 34 weeks gestation of pregnancy
CPT/HCPCS: 36415; 59025; 80053; 80307; 81001; 82570; 83615; 84156; 84550; 85025

== ENCOUNTER 2017-11-11 09:29 | Outpatient (CLI) | payer OTHER, BC ==
[2017-11-11 10:17] LABS: URINE PROTEIN 12.6 mg/dL (<12)
[2017-11-11 10:22] LABS: 24 HOUR URINE PROTEIN RESULT 292 mg/day (42-225)
== END 2017-11-11 09:30 | disposition home or self-care (01) ==
LOC: LC 09:29
PROVIDERS: ATTEND Obstetrics & Gynecology Gynecology
DX: Z34.93 Encounter for supervision of normal pregnancy, unspecified, third trimester (principal)
CPT/HCPCS: 84156

== ENCOUNTER → 2017-11-16 | Outpatient (CLI) | payer OTHER, BC ==
[2017-11-16 17:54] LABS: ALANINE AMINOTRANSFERASE 15 U/L (9-52); ALBUMIN 3.2 g/dL (3.5-5.0); ALKALINE PHOSPHATASE 112 U/L (38-126); ASPARTATE AMINO TRANSFERASE 14 U/L (14-36); BILIRUBIN,DIRECT 0.3 mg/dL (0.0-0.4); BILIRUBIN,TOTAL 0.4 mg/dL (0.2-1.3)
== END ==
LOC: OD 16:34
PROVIDERS: ATTEND Obstetrics & Gynecology
DX: O26.893 Other specified pregnancy related conditions, third trimester (principal); L29.9 Pruritus, unspecified
CPT/HCPCS: 36415; 80076; 82239

== ENCOUNTER 2017-11-21 16:30 | Outpatient (CLI) | payer OTHER, BC ==
[2017-11-21 17:36] LABS: APPEARANCE,URINE SLIGHTLY-CLOUDY; BILIRUBIN,URINE NEGATIVE (NEGATIVE); COLOR,URINE STRAW; GLUCOSE, URINE NEGATIVE (NEGATIVE); KETONES,URINE NEGATIVE (NEGATIVE); LEUKOCYTE ESTERASE,URINE LARGE (NEGATIVE); NITRITE,URINE NEGATIVE (NEGATIVE); PROTEIN,URINE NEGATIVE (NEGATIVE); URINE SPECIFIC GRAVITY 1.002; UROBILINOGEN,URINE NEGATIVE mg/dL (<2.0)
[2017-11-21 17:49] LABS: ABSOLUTE EOSINOPHILS # (AUTO) 0.1 10^3/uL (0.0-0.6); ABSOLUTE LYMPHOCYTES (AUTO) 1.7 10^3/uL (0.5-4.7); ABSOLUTE MONOCYTES (AUTO) 0.6 10^3/uL (0.1-1.4); ABSOLUTE NEUT (AUTO) 7.4 10^3/uL (1.7-8.2); BASOPHILS % (AUTO) 0.4 % (0-2); EOSINOPHILS % (AUTO) 0.6 % (0-6); HEMATOCRIT 27.7 % (36.0-47.0); HEMOGLOBIN 9.2 g/dL (12.0-15.5); LYMPHOCYTES % (AUTO) 17.4 % (13-45); MEAN CORPUSCULAR HEMOGLOBIN 25.8 pg (27.0-33.4); MEAN CORPUSCULAR HGB CONC 33.3 g/dL (32.0-36.0); MEAN CORPUSCULAR VOLUME 77 fl (80-97); MONOCYTES % (AUTO) 6.2 % (3-13); PLATELET COUNT 386 10^3/uL (150-450); RED BLOOD COUNT 3.59 10^6/uL (3.72-5.28); SEGMENTED NEUTROPHILS % (AUTO) 75.4 % (42-78); TOTAL CELLS COUNTED % (AUTO) 100 %; WHITE BLOOD COUNT 9.8 10^3/uL (4.0-10.5)
[2017-11-21 17:57] LABS: URINE AMPHETAMINES SCREEN NEGATIVE; URINE BARBITURATES SCREEN NEGATIVE; URINE BENZODIAZEPINES SCREEN NEGATIVE; URINE COCAINE SCREEN NEGATIVE; URINE MARIJUANA (THC) SCREEN NEGATIVE; URINE METHADONE SCREEN NEGATIVE; URINE PHENCYCLIDINE SCREEN NEGATIVE
[2017-11-21 18:01] LABS: UR PRO/CREAT RATIO RESULT 0.7 mg/mg (0.0-0.2); URINE CREATININE 21.4 mg/dL (16-327); URINE PROTEIN 15.7 mg/dL (<12)
[2017-11-21 18:01] LABS: ALANINE AMINOTRANSFERASE 25 U/L (9-52); ALBUMIN 3.2 g/dL (3.5-5.0); ALKALINE PHOSPHATASE 128 U/L (38-126); ANION GAP 12 (5-19); ASPARTATE AMINO TRANSFERASE 18 U/L (14-36); BILIRUBIN,DIRECT 0.3 mg/dL (0.0-0.4); BILIRUBIN,TOTAL 0.7 mg/dL (0.2-1.3); BLOOD UREA NITROGEN 6 mg/dL (7-20); CALCIUM 10.2 mg/dL (8.4-10.2); CARBON DIOXIDE 22 mmol/L (22-30); CHLORIDE 103 mmol/L (98-107); GLUCOSE 100 mg/dL (75-110); LDH 372 U/L (313-618); POTASSIUM 3.8 mmol/L (3.6-5.0); SODIUM 137.3 mmol/L (137-145); TOTAL PROTEIN 6.2 g/dL (6.3-8.2); URIC ACID 5.1 mg/dL (2.5-6.2)
--- NOTE | 2017-11-21 18:22 | Non Stress Test Report ---
Non Stress Test Datetime Report Generated by CPN: 11/21/2017 18:22 DEMOGRAPHIC EGA NST: 36.1 INDICATION Indication for Study: Other Indication for Study (NST) Other: Pre Eclampsia Workup MONITORING Monitor Explained: Monitor Explained; Test Explained; Patient Verbalized Understanding Time on Monitor: 11/21/2017 16:45 Time off Monitor: 11/21/2017 18:03 NST Duration: 78 NST INTERVENTIONS NST Interventions: None Physician Notified NST: Dr .Stokes BABY A: [id number] BABY A Movement : Present Contraction Frequency : Irregular FHR Baseline : 135 Accelerations : 15X15 Decelerations : None Variability : Moderate 6-25bpm NST Review: Meets Criteria for Reactive NST NST Review and Verified By : Dieudonne Nicole RN NST Results: Reactive NST REPORT Report Trigger: Send Report
== END 2017-11-21 18:23 | disposition home or self-care (01) ==
LOC: LC 16:30
PROVIDERS: ATTEND Obstetrics & Gynecology Gynecology
PROC: 4A1HXCZ Monitoring of Products of Conception, Cardiac Rate, External Approach (ICD-10-PCS; principal; 2017-11-21)
DX: O47.03 False labor before 37 completed weeks of gestation, third trimester (principal); Z3A.36 36 weeks gestation of pregnancy
CPT/HCPCS: 36415; 59025; 80053; 80307; 81001; 82570; 83615; 84156; 84550; 85025

== ENCOUNTER 2017-11-22 09:29 | Inpatient (IN) | payer OTHER, BC ==
[2017-11-22 10:25] LABS: APPEARANCE,URINE CLOUDY; BILIRUBIN,URINE NEGATIVE (NEGATIVE); COLOR,URINE YELLOW; GLUCOSE, URINE NEGATIVE (NEGATIVE); KETONES,URINE NEGATIVE (NEGATIVE); LEUKOCYTE ESTERASE,URINE LARGE (NEGATIVE); NITRITE,URINE NEGATIVE (NEGATIVE); PROTEIN,URINE NEGATIVE (NEGATIVE); URINE SPECIFIC GRAVITY 1.004; UROBILINOGEN,URINE NEGATIVE mg/dL (<2.0)
[2017-11-22 10:38] LABS: UR PRO/CREAT RATIO RESULT 0.6 mg/mg (0.0-0.2); URINE CREATININE 29.6 mg/dL (16-327); URINE PROTEIN 17.7 mg/dL (<12)
[2017-11-22 10:53] LABS: ABSOLUTE EOSINOPHILS # (AUTO) 0.1 10^3/uL (0.0-0.6); ABSOLUTE LYMPHOCYTES (AUTO) 1.7 10^3/uL (0.5-4.7); ABSOLUTE MONOCYTES (AUTO) 0.5 10^3/uL (0.1-1.4); ABSOLUTE NEUT (AUTO) 7.9 10^3/uL (1.7-8.2); BASOPHILS % (AUTO) 0.5 % (0-2); EOSINOPHILS % (AUTO) 0.9 % (0-6); HEMOGLOBIN 9.7 g/dL (12.0-15.5); LYMPHOCYTES % (AUTO) 16.2 % (13-45); MEAN CORPUSCULAR HEMOGLOBIN 25.9 pg (27.0-33.4); MEAN CORPUSCULAR HGB CONC 33.6 g/dL (32.0-36.0); MEAN CORPUSCULAR VOLUME 77 fl (80-97); PLATELET COUNT 370 10^3/uL (150-450); RED BLOOD COUNT 3.76 10^6/uL (3.72-5.28); RED CELL DISTRIBUTION WIDTH 14.9 % (11.5-14.0); SEGMENTED NEUTROPHILS % (AUTO) 77.4 % (42-78); TOTAL CELLS COUNTED % (AUTO) 100 %; WHITE BLOOD COUNT 10.3 10^3/uL (4.0-10.5)
[2017-11-22 10:56] LABS: URINE AMPHETAMINES SCREEN NEGATIVE; URINE BARBITURATES SCREEN NEGATIVE; URINE BENZODIAZEPINES SCREEN NEGATIVE; URINE COCAINE SCREEN NEGATIVE; URINE MARIJUANA (THC) SCREEN NEGATIVE; URINE METHADONE SCREEN NEGATIVE; URINE PHENCYCLIDINE SCREEN NEGATIVE
[2017-11-22 11:10] LABS: ALANINE AMINOTRANSFERASE 21 U/L (9-52); ALKALINE PHOSPHATASE 123 U/L (38-126); ANION GAP 12 (5-19); ASPARTATE AMINO TRANSFERASE 16 U/L (14-36); BILIRUBIN,DIRECT 0.2 mg/dL (0.0-0.4); BILIRUBIN,TOTAL 0.4 mg/dL (0.2-1.3); BLOOD UREA NITROGEN 6 mg/dL (7-20); CALCIUM 9.6 mg/dL (8.4-10.2); CARBON DIOXIDE 20 mmol/L (22-30); CHLORIDE 107 mmol/L (98-107); GLUCOSE 87 mg/dL (75-110); LDH 307 U/L (313-618); POTASSIUM 4.2 mmol/L (3.6-5.0); SODIUM 138.7 mmol/L (137-145); TOTAL PROTEIN 5.7 g/dL (6.3-8.2); URIC ACID 5.3 mg/dL (2.5-6.2)
[2017-11-22] MEDS ORDERED: RINGERS SOLUTION,LACTATED 1,000 ML IV ONE (12:51)
[2017-11-22] MEDS ORDERED: RINGERS SOLUTION,LACTATED 1,000 ML IV PRN (12:51)
[2017-11-22] MEDS ORDERED: BUTALB/ACETAMINOPHEN/CAFFEINE 1 TAB EACH PO ONE ×2 (13:03→19:06)
[2017-11-22] MEDS ORDERED: BUTALB/ACETAMINOPHEN/CAFFEINE 1 TAB EACH ONE ×3 (13:17→19:11)
[2017-11-22] MEDS ORDERED: FAMOTIDINE INJ/PF 20 MG/2 ML SDV IV ONE ×2 (14:43→14:52)
[2017-11-22] MEDS ORDERED: ONDANSETRON HCL INJ/PF 4 MG/2 ML SDV IV ONE (14:44)
[2017-11-22] MEDS ORDERED: ONDANSETRON HCL INJ/PF 4 MG/2 ML SDV ONE (14:52)
--- NOTE | 2017-11-22 14:52 | Admission Physical ---
Datetime Report Generated by CPN: 11/22/2017 14:52 CURRENT ADMISSION Hx Assessment: The History has been Reviewed and is Current Chief Complaint: Signs/Symptoms Gestational HTN Chief Complaint Other: headache Indication for Induction: Not Applicable Admit Impression : , Intrauterine ; No Active Labor Admit Impression- Other: probable pre-e Admit Plan: Observation/Evaluation ALLERGIES Medication Allergies: Yes Medication Allergies: azithromycin (11/21/2017); gabapentin (11/21/2017); strawberry (11/21/2017); aripiprazole (11/21/2017) Latex: Latex Allergies Food Allergies: strawberries OBSTETRICAL HISTORY EDC: 12/18/2017 00:00 : 4 Para: 3 Term: 3 : 0 SAB: 0 IAB: 0 Ectopic: 0 Livin Cesareans: 0 VBACs: 0 Multiple Births: 0 Gestational Diabetes: No Rh Sensitization: No Incompetent Cervix: No SAEID: No Infertility: No ART Treatment: No Uterine Anomaly: No IUGR: No Hx Previous C/S: No Macrosomia: No Hx Loss/Stillborn: No PIH: No Hx : No Placenta Previa/Abruption: No Depression/PP Depression: Yes PTL/PROM: No Post Hemorrhage: No Current Procedures: NST Obstetrical History Comments: G1 - PPD G2 - PPD G3 - PPD G4 - PPD, Pre-eclampsia SEE RECORDS Alcohol: No Marijuana : No Cocaine: No Other Illicit Drugs: No MEDICAL HISTORY Diabetes: No Blood Transfusion: No Pulmonary Disease (Asthma, TB): No Breast Disease: No 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 Heart Disease: No Hosp/Surgery: Yes Autoimmune Disorder: No Anesthetic Complications: No Kidney Disease: No Abnormal Pap Smear: Yes Neuro/Epilepsy: No Psychiatric Disorders: Yes Other Medical Diseases: No Hepatitis/Liver Disease: No Significant Family History: No Varicosities/Phlebitis: No Trauma/Violence : No Thyroid Dysfunction: Yes Medical History Comments: Bipolar, depression, hashimotos sx - neck to remove cyst, bilateral tear shoulder (left) INFECTIOUS HISTORY Gonorrhea: No Genital Herpes: No Chlamydia: No Tuberculosis: No Syphilis: No Hepatitis: No HIV/AIDS Exposure: No Rash or Viral Illness: No HPV: No PHYSICAL EXAM General: Normal HEENT: Normal Neurologic: Normal Thyroid: Deferred Heart: Normal Lungs: Normal Breast: Normal Back: Normal Abdomen: Normal Genitourinary Exam: Normal Extremities: Normal DTRs: Normal Pelvic Type: Adequate Physical Exam Comments: pelvis prove 7lbs 9oz Vital Signs: Reviewed VAGINAL EXAM Dilatation: 2 Effacement: 50 Station: -3 Contraction Comments: 2-5 FETUS A EGA: 36.2 Monitoring: External US FHR- Baseline: 120 Variability: Moderate 6-25bpm Accelerations: 15X15 Decelerations: None FHR Category: Category I Presentation: Vertex Admit Comment: 23 hour obs. Monitor bps complicated by hypothyroidism (managed by magui), swolled lymph node in left axilla, hx htn before and of pre-e, hx ptsd, polyhydramnios. Start 24 hour urine. PLANS FOR LABOR AND DELIVERY Labor and Delivery: None Pain Management: Epidural Feeding Preference: Both Benefit of Breast Feed Discussed: Yes Circumcision: Yes INFORMED CONSENT Assignment: Rosangela Carey MD Signature: with User ID: Angel : with User ID: Angel
[2017-11-22] MEDS ORDERED: PENICILLIN G POTASSIUM 5,000,000 UNIT in DEXTROSE 5%-WATER 100 ML IV ONE (16:52)
[2017-11-22] MEDS: PENICILLIN G POTASSIUM 2,500,000 UNIT in DEXTROSE 5%-WATER 50 ML IV SCH (20:53)
[2017-11-23] MEDS: PENICILLIN G POTASSIUM 2,500,000 UNIT in DEXTROSE 5%-WATER 50 ML IV SCH ×2 (00:53→04:53)
[2017-11-23] MEDS ORDERED: BUTALB/ACETAMINOPHEN/CAFFEINE 1 TAB EACH ONE (06:31)
[2017-11-23] MEDS ORDERED: BUTALB/ACETAMINOPHEN/CAFFEINE 1 TAB EACH PO ONE (06:36)
[2017-11-23] MEDS: ONDANSETRON 4 MG TAB.RAPDIS PO PRN ×2 (13:32→19:37)
[2017-11-23] MEDS: BUTALB/ACETAMINOPHEN/CAFFEINE 1 TAB EACH PO PRN ×2 (13:32→19:38)
[2017-11-23 14:01] LABS: 24 HOUR URINE PROTEIN RESULT 464 mg/day (42-225)
--- NOTE | 2017-11-23 16:09 | PDOC PROGRESS REPORT ---
Subjective Progress Note for:: 11/23/17 Subjective:: Headache is better now. She would like to stay because she states that her blood pressure goes up at home. Reason For Visit: Physical Exam - Physical Exam Vital Signs: Temp Pulse Resp BP Pulse Ox 98.7 F 81 18 105/56 L 99 11/23/17 12:46 11/23/17 12:46 11/23/17 12:46 11/23/17 12:46 11/23/17 12:46 Intake & Output 11/22/17 11/23/17 11/24/17 06:59 06:59 06:59 Weight 82.9 kg General appearance: PRESENT: no acute distress, well-developed, well-nourished Head exam: PRESENT: atraumatic, normocephalic Result Laboratory Results: 11/22/17 10:39 11/22/17 10:39 11/22/17 12:44 Ur 24 Hour Volume 2900 Ur Total Protein 24 Hr 464 H Impressions: Mild preeclampsia. Assessment & Plan - Diagnosis (1) Preeclampsia Qualifiers: Trimester: third trimester Qualified Code(s): O14.93 - Unspecified pre- eclampsia, third trimester Is this a current diagnosis for this admission?: Yes - Time Time Spent with patient: 15-24 minutes Disposition: Plan in house observation until delivery. She feels that her bp will go up at home and she will need to come right back.
[2017-11-24] MEDS: BUTALB/ACETAMINOPHEN/CAFFEINE 1 TAB EACH PO PRN ×3 (04:42→18:07)
--- NOTE | 2017-11-24 16:32 | PDOC PROGRESS REPORT ---
Subjective Progress Note for:: 11/24/17 Subjective:: still c/o headache every 4 hours if she doesn't take the fioricet Reason For Visit: Physical Exam - Physical Exam Vital Signs: Temp Pulse Resp BP Pulse Ox 98.6 F 84 16 86/52 L 97 11/24/17 11:44 11/24/17 11:44 11/24/17 11:44 11/24/17 11:44 11/24/17 11:44 Intake & Output 11/23/17 11/24/17 11/25/17 06:59 06:59 06:59 Weight 82.9 kg General appearance: PRESENT: no acute distress, cooperative GI/Abdominal exam: PRESENT: soft - gravid, +FM palpable - Obstetrical Exam Fundal Height: 3/u - 4/u Result Laboratory Results: 11/22/17 10:39 11/22/17 10:39 Assessment & Plan - Time Time Spent with patient: Less than 15 minutes - Plan Summary Plan Summary: plan to continue close monitoring due to risks of severe PreE and masking with h /o chronic migraines. Plan for induction on Sunday when she is 37 wks
[2017-11-25] MEDS: BUTALB/ACETAMINOPHEN/CAFFEINE 1 TAB EACH PO PRN ×3 (07:11→18:46)
--- NOTE | 2017-11-25 10:36 | PDOC PROGRESS REPORT ---
Subjective Progress Note for:: 11/25/17 Subjective:: She feels well and her headache is improved. She would like to stay because at home her head ached and blood pressure is worse. Reason For Visit: Physical Exam - Physical Exam Vital Signs: Temp Pulse Resp BP Pulse Ox 97.8 F 77 18 97/60 L 96 11/25/17 07:14 11/25/17 07:14 11/25/17 07:14 11/25/17 07:14 11/25/17 07:14 General appearance: PRESENT: no acute distress, well-developed, well-nourished Result Laboratory Results: 11/22/17 10:39 11/22/17 10:39 Assessment & Plan - Diagnosis (1) Preeclampsia Qualifiers: Trimester: third trimester Qualified Code(s): O14.93 - Unspecified pre- eclampsia, third trimester Is this a current diagnosis for this admission?: Yes - Time Time Spent with patient: 15-24 minutes - plan delivery at 37 weeks - Inpatient Certification Based on my medical assessment, after consideration of the patient's comorbidities, presenting symptoms, or acuity I expect that the services needed warrant INPATIENT care.: Yes Medical Necessity: Failure to Improve With Outpatient Therapy - Plan Summary Plan Summary: Monitor and deliver at 37 weeks.
[2017-11-26] MEDS: BUTALB/ACETAMINOPHEN/CAFFEINE 1 TAB EACH PO PRN ×4 (00:49→21:16)
--- NOTE | 2017-11-26 08:09 | PDOC PROGRESS REPORT ---
Subjective Progress Note for:: 11/26/17 Reason For Visit: PREECLAMPSIA pt is belligerent and mean c/o multiple complaints, acid reflux and and feels horrible,, Physical Exam - Physical Exam Vital Signs: Temp Pulse Resp BP Pulse Ox 98.1 F 70 16 90/46 L 99 11/26/17 04:12 11/26/17 04:12 11/26/17 04:12 11/26/17 04:12 11/26/17 04:12 General appearance: PRESENT: no acute distress Respiratory exam: PRESENT: clear to auscultation muriel Result Laboratory Results: 11/22/17 10:39 11/22/17 10:39 Assessment & Plan - Diagnosis (1) Proteinuria affecting Qualifiers: Trimester: third trimester Qualified Code(s): O12.13 - Gestational proteinuria, third trimester Is this a current diagnosis for this admission?: Yes - Plan Summary Plan Summary: pt wants to stay in hospital until she delivers
[2017-11-26] MEDS: MAG HYDROX/AL HYDROX/SIMETH SUSP 30 ML UDCUP PO PRN (21:17)
[2017-11-27] MEDS: BUTALB/ACETAMINOPHEN/CAFFEINE 1 TAB EACH PO PRN ×3 (06:13→21:22)
--- NOTE | 2017-11-27 09:50 | PDOC PROGRESS REPORT ---
Subjective Progress Note for:: 11/27/17 Subjective:: patient states that HOUGH are controlled somewhat with Fioricet. Indicates that she has h/o migraines and headaches have worsened over the last month. Reason For Visit: PREECLAMPSIA Physical Exam - Physical Exam Vital Signs: Temp Pulse Resp BP Pulse Ox 98.2 F 70 15 110/71 98 11/27/17 08:08 11/27/17 08:08 11/27/17 08:08 11/27/17 08:08 11/27/17 08:08 Intake & Output 11/26/17 11/27/17 11/28/17 06:59 06:59 06:59 Weight 90.9 kg General appearance: PRESENT: no acute distress, cooperative - Obstetrical Exam External Genitalia: normal Vagina: normal Dilation (cm): 2 Effacement (%): 25 Station: -3 Fundal Height: 3/u - 4/u Tender: No Result Laboratory Results: 11/22/17 10:39 11/22/17 10:39 Assessment & Plan - Plan Summary Plan Summary: will bring to L&D tonight for cervical ripening based on today's exam.
[2017-11-27] MEDS: ONDANSETRON 4 MG TAB.RAPDIS PO PRN (14:48)
[2017-11-27] MEDS ORDERED: RINGERS SOLUTION,LACTATED 300 ML IV ONE (18:18)
[2017-11-27] MEDS ORDERED: RINGERS SOLUTION,LACTATED 1,000 ML IV PRN (18:18)
[2017-11-27] MEDS ORDERED: OXYTOCIN/NORMAL SALINE 20 UNIT/1,000 ML RTUINJ IV PRN (18:18)
[2017-11-27 20:01] LABS: ABSOLUTE EOSINOPHILS # (AUTO) 0.1 10^3/uL (0.0-0.6); ABSOLUTE LYMPHOCYTES (AUTO) 1.9 10^3/uL (0.5-4.7); ABSOLUTE MONOCYTES (AUTO) 0.5 10^3/uL (0.1-1.4); ABSOLUTE NEUT (AUTO) 8.3 10^3/uL (1.7-8.2); BASOPHILS % (AUTO) 0.3 % (0-2); EOSINOPHILS % (AUTO) 0.7 % (0-6); HEMATOCRIT 28.5 % (36.0-47.0); HEMOGLOBIN 9.2 g/dL (12.0-15.5); LYMPHOCYTES % (AUTO) 17.3 % (13-45); MEAN CORPUSCULAR HEMOGLOBIN 25.2 pg (27.0-33.4); MEAN CORPUSCULAR HGB CONC 32.2 g/dL (32.0-36.0); MEAN CORPUSCULAR VOLUME 78 fl (80-97); MONOCYTES % (AUTO) 4.4 % (3-13); PLATELET COUNT 349 10^3/uL (150-450); RED BLOOD COUNT 3.64 10^6/uL (3.72-5.28); RED CELL DISTRIBUTION WIDTH 15.6 % (11.5-14.0); SEGMENTED NEUTROPHILS % (AUTO) 77.3 % (42-78); TOTAL CELLS COUNTED % (AUTO) 100 %; WHITE BLOOD COUNT 10.8 10^3/uL (4.0-10.5)
[2017-11-27 20:05] LABS: ALANINE AMINOTRANSFERASE 29 U/L (9-52); ALBUMIN 3.1 g/dL (3.5-5.0); ALKALINE PHOSPHATASE 121 U/L (38-126); ANION GAP 13 (5-19); ASPARTATE AMINO TRANSFERASE 32 U/L (14-36); BILIRUBIN,DIRECT 0.2 mg/dL (0.0-0.4); BILIRUBIN,TOTAL 0.2 mg/dL (0.2-1.3); BLOOD UREA NITROGEN 10 mg/dL (7-20); CALCIUM 8.5 mg/dL (8.4-10.2); CARBON DIOXIDE 22 mmol/L (22-30); CHLORIDE 103 mmol/L (98-107); GLUCOSE 136 mg/dL (75-110); POTASSIUM 4.1 mmol/L (3.6-5.0); TOTAL PROTEIN 5.8 g/dL (6.3-8.2); URIC ACID 4.7 mg/dL (2.5-6.2)
[2017-11-27] MEDS: MISOPROSTOL 0.1 MG TABLET PV SCH (21:22)
[2017-11-27 21:33] LABS: APPEARANCE,URINE CLEAR; BILIRUBIN,URINE NEGATIVE (NEGATIVE); COLOR,URINE STRAW; GLUCOSE, URINE NEGATIVE (NEGATIVE); KETONES,URINE NEGATIVE (NEGATIVE); LEUKOCYTE ESTERASE,URINE LARGE (NEGATIVE); NITRITE,URINE NEGATIVE (NEGATIVE); PROTEIN,URINE NEGATIVE (NEGATIVE); URINE SPECIFIC GRAVITY 1.003; UROBILINOGEN,URINE NEGATIVE mg/dL (<2.0)
[2017-11-28] MEDS: MISOPROSTOL 0.1 MG TABLET PV SCH (01:36)
[2017-11-28] MEDS ORDERED: OXYTOCIN/NORMAL SALINE 20 UNIT/1,000 ML RTUINJ IV PRN ×2 (05:47→16:11)
[2017-11-28] MEDS ORDERED: OXYTOCIN/NORMAL SALINE 20 UNIT/1,000 ML RTUINJ ONE (05:56)
[2017-11-28] MEDS: BUTALB/ACETAMINOPHEN/CAFFEINE 1 TAB EACH PO PRN ×3 (06:01→21:54)
[2017-11-28] MEDS ORDERED: BUTALB/ACETAMINOPHEN/CAFFEINE 1 TAB EACH ONE ×2 (06:02→11:50)
[2017-11-28] MEDS ORDERED: MAG HYDROX/AL HYDROX/SIMETH SUSP 30 ML UDCUP ONE (06:19)
[2017-11-28] MEDS ORDERED: PROMETHAZINE HCL INJ 25 MG/1 ML VIAL ONE (06:24)
[2017-11-28] MEDS: MAG HYDROX/AL HYDROX/SIMETH SUSP 30 ML UDCUP PO PRN (06:48)
[2017-11-28] MEDS ORDERED: MISOPROSTOL 0.2 MG TABLET ONE (08:05)
[2017-11-28] MEDS ORDERED: LIDOCAINE 1% INJ-PF (10 MG/ML) 30 ML SDV ONE (08:05)
[2017-11-28] MEDS ORDERED: EPHEDRINE SULFATE INJ 50 MG/1 ML AMPULE ONE (08:33)
[2017-11-28] MEDS ORDERED: FENTANYL/BUPIVACAINE/NS/PF 300 MCG/150 ML RTUINJ EPI ONE (08:34)
[2017-11-28] MEDS ORDERED: BUPIVACAINE HCL 0.25 % INJ/PF (2.5 MG/1 ML) 30 ML VIAL ONE (08:34)
--- NOTE | 2017-11-28 11:20 | L&D Progress Notes ---
PROGRESS NOTES Datetime Report Generated by CPN: 11/28/2017 11:20 PROGRESS NOTE Impression: Reassuring Heart Rate Procedures: Artificial ROM; Sterile Vag Exam Plan: Continue Present Management Informed Consent Obtained: Vaginal Delivery Vital Signs : Reviewed Comment: Pt more comfortable with epidural AROM, clear, large amount Pitocin at 20 mu Anticipate VAGINAL EXAM Dilatation: 5 Dilatation: 2 Effacement: 80 Effacement: 50 Station: 0 Station: -3 Contractions: 2-5 Contractions: 2-5 MEMBRANES Membranes: Ruptured Amniotic Fluid Color: Clear FETUS A FHR - Baseline: 130 Variability: Moderate 6-25bpm Accelerations: 15X15 Decelerations: None FHR Category: Category I Presentation: Vertex SIGNATURE SIGNATURE: [id number];[id number];[id number] SIGNATURE: [id number];[id number] SIGNATURE: [id number] SIGNATURE: [id number] Assignment: Rosangela Carey MD Signature: with User ID: [email or web address] : with User ID: Angel
[2017-11-28] MEDS ORDERED: BENZOCAINE/MENTHOL AEROSOL SPRAY 56 ML TOP PRN (16:11)
[2017-11-28] MEDS ORDERED: ZOLPIDEM TARTRATE 5 MG TABLET PO PRN (16:11)
[2017-11-28] MEDS ORDERED: GLYCERIN/WITCH HAZEL LEAF 1 EACH MED..PAD TP PRN (16:11)
[2017-11-28] MEDS ORDERED: ACETAMINOPHEN WITH CODEINE #3 TABLET PO PRN (16:11)
[2017-11-28] MEDS ORDERED: MAGNESIUM HYDROXIDE SUSP 30 ML UDCUP PO PRN (16:11)
[2017-11-28] MEDS ORDERED: PSEUDOEPHEDRINE HCL 30 MG TABLET PO PRN (16:11)
[2017-11-28] MEDS ORDERED: DIPHENHYDRAMINE HCL 25 MG CAPSULE PO PRN (16:11)
[2017-11-28] MEDS ORDERED: DIPH/PERTUSS(ACELL)/TETANUS VAC/PF 0.5 ML SYR (>=10YO) IM PRN (16:11)
[2017-11-28] MEDS ORDERED: MEASLES,MUMPS&RUBELLA VACC/PF 0.5 ML VIAL SUBCUT PRN (16:11)
[2017-11-28] MEDS ORDERED: NA PHOS,M-B/NA PHOS,DI-BA (ADULT) 133 ML ENEMA PR PRN (16:11)
[2017-11-28] MEDS ORDERED: ACETAMINOPHEN 325 MG TABLET PO PRN (16:11)
[2017-11-28] MEDS ORDERED: DIBUCAINE 1% OINTMENT 28 GM TP PRN (16:11)
[2017-11-28] MEDS ORDERED: PROMETHAZINE HCL 25 MG SUPP.RECT PR PRN (16:11)
[2017-11-28] MEDS ORDERED: PROMETHAZINE HCL INJ 25 MG/1 ML VIAL IV PRN (16:11)
--- NOTE | 2017-11-28 16:56 | Warning Signs in Babies ---
VOD Warning Signs Datetime Report Generated by [facility]: 11/28/2017 16:56 VOD#608 -Warning Signs in Babies: Viewed with Parent(s)/Family (11/06/2017 11:26:Alize Mike RN)
--- NOTE | 2017-11-28 17:19 | Delivery Summary ---
Del Sum A-C Datetime Report Generated by CPN: 11/28/2017 17:19 DELIVERY PERSONNEL DELIVERY PERSONNEL: [id number] Delivery Doctor:: Cat Mitchell CNM Labor and Delivery Nurse:: Dayna Mike RNcompany dancer Nurse:: Carley Nicole RN Nursery Nurse:: Lyric Taylor RN Nursery Nurse:: Oanh Cullen RN Maintainability Engineer/CUT OFF SAW SET UP OPERATOR: P[place]i [place], ST MATERNAL INFORMATION Delivery Anesthesia: Epidural Medications After Delivery: Pitocin Bolus-Please Comment; Other-Please Comment Meds After Delivery Comment: Pitocin 20 Units in 1 L NS bolusing. Cytotec 1000 mcg per rectum. Maternal Complications: None Provider Comments: of viable male infant, head deliverd, loose nuchal noted, delivered through, shoulders and body delivered without difficulty, infant with spontaeous cry and respirations, cord clamped X2 and infant cut free by pts marcela, handed off to nursery, per pts request. Spontaneous delivery of placenta, appears intact, 3 VC, delivered via an mechanism. Lower uterine segment initally boggy, firmed up with fundal massage, IV pitocin, and rectal cytotec, vagina and perineum inspected, no lacerations noted, mother and infant in stable condition, routine pp care. LABOR SUMMARY EDC: 12/18/2017 00:00 No. Babies in Womb: 1 Attempted: No Labor Anesthesia: Epidural LABOR INFORMATION Reason for Induction: Other Reason for Induction- Other: Migraines Onset of Labor: 11/28/2017 13:41 Complete Dilatation: 11/28/2017 15:30 Cervical Ripening Agents: Underwood Balloon; Cytotec @ Oxytocin: Induction Group B Beta Strep: negative Antibiotics # of Doses: 0 Steroids Given: None Reason Steroids Not Administered: Not Applicable MEMBRANES Membranes Rupture Method: Artificial Rupture of Membranes: 11/28/2017 11:05 Length of Rupture (hr): 4.85 Amniotic Fluid Color: Clear Amniotic Fluid Amount: Large Amniotic Fluid Odor: Normal STAGES OF LABOR Stage 1 hr: 1 Stage 1 min: 49 Stage 2 hr: 0 Stage 2 min: 26 Stage 3 hr: 0 Stage 3 min: 2 Total Time in Labor hr: 2 Total Time in Labor min: 17 VAGINAL DELIVERY Episiotomy: None Laceration #1: None Laceration Extension #1: N/A Laceration Repair: Not Applicable Sponge Count Correct: N/A Sharps Count Correct: N/A CSECTION DELIVERY Primary Indication: N/A Secondary Indication: N/A CSection Incidence: N/A Labor: N/A Elective: N/A CSection Incision: N/A BABY A INFORMATION Infant Delivery Date/Time: 11/28/2017 15:56 Method of Delivery: Vaginal Born in Route : No : N/A Forceps: N/A Vacuum Extraction: N/A Shoulder Dystocia : No PRESENTATION/POSITION BABY A Presentation: Cephalic Cephalic Presentation: Vertex Vertex Position: Occipital Posterior Breech Presentation: N/A PLACENTA INFORMATION BABY A Placenta Delivery Time : 11/28/2017 15:58 Placenta Method of Delivery: Spontaneous Placenta Status: Delivered SCORES BABY A Heart Rate 1 min: >100 bpm Resp Effort 1 min: Good Cry Reflex Irritability 1 min: Cough or Sneeze or Pulls Away Muscle Tone 1 min: Active Motion Color 1 min: Body Clyman, Extremities Blue Resuscitation Effort 1 min: Tactile Stimulation SCORE 1 MIN: 9 Heart Rate 5 min: >100 bpm Resp Effort 5 min: Good Cry Reflex Irritability 5 min: Cough or Sneeze or Pulls Away Muscle Tone 5 min: Active Motion Color 5 min: Body Clyman, Extremities Blue Resuscitation Effort 5 min: Tactile Stimulation SCORE 5 MIN: 9 INFORMATION BABY A Gestational Age at Delivery: 37.1 Gestational Status: Early Term- 37- 38.6 Weeks Infant Outcome : Liveborn Infant Condition : Stable Sex: Male IDENTIFICATION BABY A Infant Verification Date/Time: 11/28/2017 16:24 ID Band Number: [id number] Mother's Name Verified: Yes RN Verifying Infant: CThomas De La Fuente RN MThomas Mike RN WEIGHT/LENGTH BABY A Birthweight (gm): 3000 Infant Weight (lb): 6 Weight (oz): 10 Length (in): 20.25 Infant Length (cm): 51.44 CORD INFORMATION BABY A No. Cord Vessels: 3 Nuchal Cord : Around Neck x1, Loose Cord Blood Taken: Yes-For Eval (Mom's Blood Type - or O+) Infant Suction: None ASSESSMENT BABY A Infant Complications: None Physical Findings at Delivery: Within Normal Limits Respirations: Appears Normal Skin to Skin: No Utility Systems Repairer Operator/ALS Called : No Care By: Marlon Taylor RN Transferred To: Remains with Mother BABY B INFORMATION : N/A SIGNATURES Assignment: Rosangela Carey MD Signature: with User ID: Angel : with User ID: Angel
[2017-11-28] MEDS: FERROUS SULFATE 325 MG TABLET PO SCH (18:54)
[2017-11-28] MEDS: DOCUSATE SODIUM 100 MG CAPSULE PO SCH (18:54)
[2017-11-28] MEDS: PROMETHAZINE HCL 25 MG TABLET PO PRN (19:56)
[2017-11-28] MEDS: IBUPROFEN 800 MG TABLET PO SCH (21:54)
[2017-11-28] MEDS: FAMOTIDINE 20 MG TABLET PO SCH (21:55)
[2017-11-29] MEDS: IBUPROFEN 800 MG TABLET PO SCH ×2 (05:05→16:39)
[2017-11-29 07:12] LABS: HEMATOCRIT 24.8 % (36.0-47.0); MEAN CORPUSCULAR HEMOGLOBIN 24.5 pg (27.0-33.4); MEAN CORPUSCULAR VOLUME 77 fl (80-97); PLATELET COUNT 308 10^3/uL (150-450); RED BLOOD COUNT 3.22 10^6/uL (3.72-5.28); RED CELL DISTRIBUTION WIDTH 15.7 % (11.5-14.0)
[2017-11-29 07:16] LABS: HEMOGLOBIN 7.9 g/dL (12.0-15.5)
--- NOTE | 2017-11-29 08:57 | PDOC PROGRESS REPORT ---
Subjective-OB Progress Note for:: 11/29/17 Subjective: Reports light-headedness when ambulating. Physical Exam (OB) Vital Signs: Temp Pulse Resp BP Pulse Ox 98.0 F 70 16 104/68 96 11/29/17 04:52 11/29/17 04:52 11/29/17 04:52 11/29/17 04:52 11/29/17 04:52 Intake & Output 11/28/17 11/29/17 11/30/17 06:59 06:59 06:59 Intake Total 1000 Balance 1000 Weight 90.7 kg - PIH/Pre-Eclampsia DTR's: 1 + Clonus: Negative Headache: Present Epigastric Pain: No Visual Changes: Yes - "on and off" - Lochia Lochia Amount: Scant < 10 ml Lochia Color: Rubra/Red - Abdomen Description: Soft, Round Hernia Present: No Bowel Sounds: Normoactive Flatus Presence: Present Stool: No Fundal Description: Firm, Midline Fundal Height: u/u - u/2 Objective-Diagnostic Laboratory: 11/29/17 06:44 11/27/17 19:03 11/29/17 06:44 WBC 14.0 H RBC 3.22 L Hgb 7.9 L Hct 24.8 L MCV 77 L MCH 24.5 L MCHC 32.0 RDW 15.7 H Plt Count 308
[2017-11-29] MEDS: DOCUSATE SODIUM 100 MG CAPSULE PO SCH ×2 (11:19→17:29)
[2017-11-29] MEDS: PROMETHAZINE HCL 25 MG TABLET PO PRN (11:19)
[2017-11-29] MEDS: SENNOSIDES/DOCUSATE 8.6-50 MG 1 EACH TABLET PO SCH (11:20)
[2017-11-29] MEDS: PRENATAL VITAMIN W DHA CAPSULE PO SCH (11:21)
[2017-11-29] MEDS: FERROUS SULFATE 325 MG TABLET PO SCH ×2 (11:21→17:33)
[2017-11-29] MEDS: FAMOTIDINE 20 MG TABLET PO SCH (11:21)
[2017-11-29] MEDS: ACETAMINOPHEN WITH CODEINE #3 TABLET PO PRN ×2 (17:32→21:18)
[2017-11-29] MEDS: BUTALB/ACETAMINOPHEN/CAFFEINE 1 TAB EACH PO PRN (23:30)
[2017-11-30] MEDS: ACETAMINOPHEN WITH CODEINE #3 TABLET PO PRN (04:06)
[2017-11-30] MEDS: FAMOTIDINE 20 MG TABLET PO SCH ×2 (04:38→10:12)
[2017-11-30] MEDS: IBUPROFEN 800 MG TABLET PO SCH ×2 (04:38→07:56)
[2017-11-30] MEDS: BUTALB/ACETAMINOPHEN/CAFFEINE 1 TAB EACH PO PRN (07:56)
[2017-11-30] MEDS: DOCUSATE SODIUM 100 MG CAPSULE PO SCH (10:12)
[2017-11-30] MEDS: SENNOSIDES/DOCUSATE 8.6-50 MG 1 EACH TABLET PO SCH (10:12)
[2017-11-30] MEDS: PRENATAL VITAMIN W DHA CAPSULE PO SCH (10:12)
[2017-11-30] MEDS: FERROUS SULFATE 325 MG TABLET PO SCH (10:18)
[2017-11-30] MEDS ORDERED: HYDROCODONE/ACETAMINOPHEN 10-325 MG TABLET PO ONE (10:22)
--- NOTE | 2017-11-30 11:04 | PDOC DISCHARGE SUMMARY ---
Final Diagnosis Discharge Date: 11/30/17 - Final Diagnosis (1) Anemia Is this a current diagnosis for this admission?: Yes (2) History PTSD and anxiety Is this a current diagnosis for this admission?: Yes (3) Hypothyroidism Is this a current diagnosis for this admission?: Yes (4) Vaginal delivery Is this a current diagnosis for this admission?: Yes Discharge Data - Discharge Medication Prescriptions: Hydrocodone/Acetaminophen [Vicodin 5-300 mg Tablet] 1 - 2 tab PO ASDIR PRN #15 tab PRN Reason: Ibuprofen [Motrin 800 mg Tablet] 800 mg PO Q8 #60 tablet Levothyroxine Sodium [Synthroid] 25 mcg PO DAILY #30 tablet Lorazepam [Ativan 1 mg Tablet] 1 mg PO BID PRN 15 Days #30 tab PRN Reason: Tramadol HCl [Ultram 50 mg Tablet] 50 mg PO BID PRN #60 tablet PRN Reason: Home Medications: Bupropion HCl [Wellbutrin 100 mg Tablet] 300 mg PO DAILY 12/09/11 Vit,Calc76/Iron/Folic [Prenatabs Rx Tablet] 1 each PO DAILY 11/06/17 Ferrous Sulfate [Feosol 325 mg Tablet] 325 mg PO BID tablet 11/30/17 Hydrocodone/Acetaminophen [Vicodin 5-300 mg Tablet] 1 - 2 tab PO ASDIR PRN #15 tab 11/30/17 Ibuprofen [Motrin 800 mg Tablet] 800 mg PO Q8 #60 tablet 11/30/17 Levothyroxine Sodium [Synthroid] 25 mcg PO DAILY #30 tablet 11/30/17 Lorazepam [Ativan 1 mg Tablet] 1 mg PO BID PRN 15 Days #30 tab 11/30/17 Vit/Dha [ Multi + Dha Capsule] 1 cap PO DAILY capsule Tramadol HCl [Ultram 50 mg Tablet] 50 mg PO BID PRN #60 tablet 11/30/17 Reason(s) for Admission: Induction of Labor Procedures: NST Intrapartum Procedure(s): Spontaneous Vaginal Delivery - Diagnosis Test Laboratory: Temp Pulse Resp BP Pulse Ox 97.4 F 78 16 121/85 96 11/30/17 08:51 11/30/17 08:51 11/30/17 08:51 11/30/17 08:51 11/30/17 08:51 11/22/17 11/22/17 11/27/17 09:42 10:39 19:03 RBC 3.76 3.64 L Hgb 9.7 L 9.2 L Hct 29.0 L 28.5 L Urine Opiates Screen NEGATIVE 11/29/17 06:44 RBC 3.22 L Hgb 7.9 L Hct 24.8 L Urine Opiates Screen - Discharge information/Instructions Discharge Activity: Balance Activity w/Rest Discharge Diet: Regular Disposition: HOME, SELF-CARE Follow up with: [facility] in: 1, Weeks - for PPD check, hx of PTSD and anxiety
[2017-11-30 12:41] VITALS: BP 110/74
--- NOTE | 2017-11-30 15:40 | PDOC PROGRESS REPORT ---
Subjective-OB Progress Note for:: 11/30/17 Subjective: pt with multiple complaints: chronic heacaches, chronic back pain that she takes ultram for. states she takes wellbutrin and ativan outside of , managed by psych. CNM agreed to 15 day supply of ativan until she can see her psych provider. also with dizziness, HOUGH and fatigue with low H&H, adamantly states she does not want a blood transfusion. bottle feeding. bleeding slowing. Physical Exam (OB) Vital Signs: Temp Pulse Resp BP Pulse Ox 97.9 F 94 18 110/74 96 11/30/17 12:24 11/30/17 12:24 11/30/17 12:24 11/30/17 12:24 11/30/17 12:24 Intake & Output 11/29/17 11/30/17 12/01/17 06:59 06:59 06:59 Weight 90.7 kg 90.7 kg - Abdomen Description: Soft, Flat Hernia Present: No Fundal Description: Firm, Midline Fundal Height: u/u - u/2 - Abdominal Tenderness: Nontender - Extremities Lower extremities: Teresa's sign - neg Calf: Normal, Nontender Objective-Diagnostic Laboratory: 11/29/17 06:44 11/27/17 19:03 Assessment and Plan(PN) - Assessment and Plan (1) Anemia Is this a current diagnosis for this admission?: Yes (2) History PTSD and anxiety Is this a current diagnosis for this admission?: Yes (3) Hypothyroidism Is this a current diagnosis for this admission?: Yes (4) Vaginal delivery Is this a current diagnosis for this admission?: Yes - Time Spent with Patient Time with patient: Less than 15 minutes - Disposition Anticipated Discharge: Home Within: within 24 hours
== END 2017-11-30 13:58 | disposition home or self-care (01) | DRG 775 ==
LOC: LC 09:29 → LR 14:50 → OBSVTOIN 14:50 → INTOOBSV 14:50 → 2N 11-23 08:25 → OBSVTOIN 11-25 22:27 → LR 11-27 19:13 → 2N 11-28 18:30
PROVIDERS: ADMIT Student in an Organized Health Care Education/Training Program; ATTEND Student in an Organized Health Care Education/Training Program
PROC: 10E0XZZ Delivery of Products of Conception, External Approach (ICD-10-PCS; principal; 2017-11-28)
DX: O11.4 Pre-existing hypertension with pre-eclampsia, complicating childbirth (principal); O40.3XX0 Polyhydramnios, third trimester, not applicable or unspecified; O99.284 Endocrine, nutritional and metabolic diseases complicating childbirth; O99.02 Anemia complicating childbirth; O75.89 Other specified complications of labor and delivery; O99.344 Other mental disorders complicating childbirth; O69.81X0 Labor and delivery complicated by cord around neck, without compression, not applicable or unspecified; E03.9 Hypothyroidism, unspecified; G43.909 Migraine, unspecified, not intractable, without status migrainosus; D64.9 Anemia, unspecified; F41.9 Anxiety disorder, unspecified; Z3A.36 36 weeks gestation of pregnancy; Z37.0 Single live birth
CPT/HCPCS: 36415; 59025; 80053; 80307; 81001; 82570; 83615; 84156; 84550; 85025; 85027; 86592; 86850; 86900; 86901; 94760; C1726; G0378; G0379; J2405; J2550; J2590; J3010; J3490; S0028; S0119

== ENCOUNTER 2018-09-30 15:32 | Outpatient (CLI) | payer OTHER, BC ==
[2018-09-30 16:37] LABS: APPEARANCE,URINE CLEAR; BILIRUBIN,URINE NEGATIVE (NEGATIVE); COLOR,URINE STRAW; GLUCOSE, URINE NEGATIVE (NEGATIVE); KETONES,URINE NEGATIVE (NEGATIVE); LEUKOCYTE ESTERASE,URINE TRACE (NEGATIVE); NITRITE,URINE NEGATIVE (NEGATIVE); PROTEIN,URINE NEGATIVE (NEGATIVE); URINE SPECIFIC GRAVITY 1.002; UROBILINOGEN,URINE NEGATIVE mg/dL (<2.0)
[2018-09-30 16:45] LABS: ABSOLUTE BASOPHILS # (AUTO) 0.1 10^3/uL (0.0-0.2); ABSOLUTE EOSINOPHILS # (AUTO) 0.1 10^3/uL (0.0-0.6); ABSOLUTE LYMPHOCYTES (AUTO) 1.5 10^3/uL (0.5-4.7); ABSOLUTE MONOCYTES (AUTO) 0.6 10^3/uL (0.1-1.4); ABSOLUTE NEUT (AUTO) 8.2 10^3/uL (1.7-8.2); BASOPHILS % (AUTO) 0.6 % (0-2); EOSINOPHILS % (AUTO) 0.8 % (0-6); HEMATOCRIT 27.7 % (36.0-47.0); HEMOGLOBIN 9.4 g/dL (12.0-15.5); LYMPHOCYTES % (AUTO) 13.9 % (13-45); MEAN CORPUSCULAR HEMOGLOBIN 25.5 pg (27.0-33.4); MEAN CORPUSCULAR HGB CONC 34.1 g/dL (32.0-36.0); MEAN CORPUSCULAR VOLUME 75 fl (80-97); MONOCYTES % (AUTO) 6.1 % (3-13); PLATELET COUNT 351 10^3/uL (150-450); RED BLOOD COUNT 3.71 10^6/uL (3.72-5.28); RED CELL DISTRIBUTION WIDTH 15.6 % (11.5-14.0); SEGMENTED NEUTROPHILS % (AUTO) 78.6 % (42-78); TOTAL CELLS COUNTED % (AUTO) 100 %; WHITE BLOOD COUNT 10.5 10^3/uL (4.0-10.5)
[2018-09-30 17:05] LABS: URINE AMPHETAMINES SCREEN NEGATIVE; URINE BARBITURATES SCREEN NEGATIVE; URINE BENZODIAZEPINES SCREEN NEGATIVE; URINE COCAINE SCREEN NEGATIVE; URINE MARIJUANA (THC) SCREEN NEGATIVE; URINE METHADONE SCREEN NEGATIVE; URINE PHENCYCLIDINE SCREEN NEGATIVE
[2018-09-30 17:05] LABS: ALANINE AMINOTRANSFERASE 17 U/L (9-52); ALBUMIN 3.2 g/dL (3.5-5.0); ALKALINE PHOSPHATASE 93 U/L (38-126); ANION GAP 10 (5-19); ASPARTATE AMINO TRANSFERASE 10 U/L (14-36); BILIRUBIN,DIRECT 0.2 mg/dL (0.0-0.4); BILIRUBIN,TOTAL 0.3 mg/dL (0.2-1.3); BLOOD UREA NITROGEN 9 mg/dL (7-20); CALCIUM 9.8 mg/dL (8.4-10.2); CARBON DIOXIDE 22 mmol/L (22-30); CHLORIDE 102 mmol/L (98-107); GLUCOSE 95 mg/dL (75-110); POTASSIUM 3.8 mmol/L (3.6-5.0); SODIUM 134.2 mmol/L (137-145); TOTAL PROTEIN 5.8 g/dL (6.3-8.2)
[2018-09-30 17:07] LABS: UR PRO/CREAT RATIO RESULT 0.8 mg/mg (0.0-0.2); URINE CREATININE 21.6 mg/dL (16-327); URINE PROTEIN 17.4 mg/dL (<12)
--- NOTE | 2018-09-30 18:39 | L&D Progress Notes ---
PROGRESS NOTES Datetime Report Generated by ALLYSON: 09/30/2018 18:39 PROGRESS NOTE Impression Other: elevated BP Procedures- Other: monitor Plan Other: PI labs Vital Signs : Reviewed; Within Normal Limits Comment: Pt sent from the [facility] office secondary to elevated BP and a h/o pre-eclampsia x 2. She is also c/o a headache. Dr. Freeman called to give her history and to request labs. Her [facility] labs were WNL except for her UTP, which was 0.8. Her BPs ranged 130s/80s. Her headache has improved. She was given 24 urine jug to collect tomorrow. I provided her with a work excuse for tomorrow to get it done RENATA. I spoke with Dr. Freeman to let her know that her labs were WNL and her BP values. She agreed that did not need BP medsa at this time. She informed me that all BPs should be performed while the pt is sitting. Her seated BPs were still in the 130s/80s. Pt given Pre-e precautions. She will be seen next week at [facility] per Dr. Freeman, who will have the pt contacted for an earlier appt. FETUS A FHR - Baseline: 130s Monitoring: Doppler Variability: Moderate 6-25bpm Decelerations: None : 25.5 SIGNATURE SIGNATURE: [id number] Signature: with User ID: [email or web address]
[2018-10-02 09:52] LABS: URINE PROTEIN 18.2 mg/dL (<12)
[2018-10-02 09:57] LABS: 24 HOUR URINE PROTEIN RESULT 910 mg/day (42-225)
== END 2018-09-30 18:28 | disposition home or self-care (01) ==
LOC: LC 15:32
PROVIDERS: ATTEND Obstetrics & Gynecology
PROC: 4A1HXCZ Monitoring of Products of Conception, Cardiac Rate, External Approach (ICD-10-PCS; principal; 2018-09-30)
DX: O16.2 Unspecified maternal hypertension, second trimester (principal); O47.02 False labor before 37 completed weeks of gestation, second trimester; Z3A.25 25 weeks gestation of pregnancy
CPT/HCPCS: 36415; 80053; 80307; 81001; 82570; 83615; 84156; 84550; 85025